=== PATIENT | male | born 1980 | race Caucasian/White ===

== ENCOUNTER 2018-05-12 12:59 | Emergency (ER) | payer OTHER ==
--- NOTE | 2018-05-12 15:11 | RADIOLOGY REPORT (SQ) ---
EXAM DESCRIPTION: RIBS LEFT W/PA CHEST COMPLETED DATE/TIME: 05/12/2018 2:59 pm REASON FOR STUDY: fall pain left ribs and clavicle COMPARISON: Chest film 11/21/2011 TECHNIQUE: Frontal view of the chest and additional views of the left ribs acquired. NUMBER OF VIEWS: PA chest, left ribs three views LIMITATIONS: None. FINDINGS: FRONTAL CXR: No pneumothorax. No pleural effusion. No atelectasis or infiltrates. Cardi ac silhouette size, marcus unremarkable. RIBS: No displaced rib fractures. No lytic or blastic bony lesions. OTHER: No other significant finding. IMPRESSION: NO PNEUMOTHORAX. NO DISPLACED RIB FRACTURES. COMMENT: SITE OF TRAUMA/COMPLAINT MARKED/STAMP COMPLETED: Yes TECHNICAL DOCUMENTATION: JOB ID: [id number] [employer]- All Rights Reserved Reading location - IP/workstation name: [email or web address]
[2018-05-12 15:24] VITALS: BP 136/89
--- NOTE | 2018-05-12 15:26 | ER Document Report ---
ED Fall - General Chief Complaint: Rib Pain Stated Complaint: FALL/RIB PAIN Time Seen by Provider: 05/12/18 14:19 Mode of Arrival: Ambulatory Information source: Patient Notes: Presents to ED for complaint of left rib pain and left neck pain after falling last night landing on a coffee table. He stated he tripped over his own feet causing the fall. He does have bruising to the left lateral and posterior ribs. He states he recently had a neuroma removed from his right foot on 05/09/2018. He is alert oriented respirations regular and unlabored speaking in full sentences with no acute distress. TRAVEL OUTSIDE OF THE [place] IN LAST 30 DAYS: No - HPI Occurred: Yesterday Where: Home, Indoors Context: Tripped Associated symptoms: None Location of injury/pain: Back, Neck Quality of pain: Achy, Sharp Severity: Severe Pain Level: 5 - Related data Allergies/Adverse Reactions: No Known Drug Allergies Allergy (Verified 05/12/18 13:01) Past Medical History - General Information source: Patient - Social History Smoking Status: Never Smoker Chew tobacco use (# tins/day): No Frequency of alcohol use: Occasional Drug Abuse: None Family History: Reviewed & Not Pertinent Patient has suicidal ideation: No Patient has homicidal ideation: No - Past Medical History Cardiac Medical History: Reports: None Pulmonary Medical History: Reports: None EENT Medical History: Reports: None Neurological Medical History: Reports: None Endocrine Medical History: Reports: None Renal/ Medical History: Reports: None Malignancy Medical History: Reports None GI Medical History: Reports: None Musculoskeletal Medical History: Reports Hx Musculoskeletal Deformity, Reports Hx Musculoskeletal Trauma Skin Medical History: Reports None Psychiatric Medical History: Reports: None Traumatic Medical History: Reports: Hx Fractures - Bilateral legs times multiple left arm multiple fingers multiple toes ankle Past Surgical History: Reports: Hx Orthopedic Surgery - R foot replacement, right rotator cuff repair - Immunizations Immunizations up to date: Yes Hx Diphtheria, Pertussis, Tetanus Vaccination: Yes Review of Systems - Review of Systems Constitutional: No symptoms reported EENT: No symptoms reported Cardiovascular: Chest pain - Left lateral rib tenderness bruising Respiratory: Hurts to breathe Gastrointestinal: No symptoms reported Genitourinary: No symptoms reported Male Genitourinary: No symptoms reported Musculoskeletal: No symptoms reported Skin: Change in color - Ecchymosis to left lateral rib area Hematologic/Lymphatic: No symptoms reported Neurological/Psychological: No symptoms reported -: Yes All other systems reviewed and negative Physical Exam - Vital signs Vitals: Temp Pulse Resp BP Pulse Ox 98.3 F 82 18 150/97 H 96 05/12/18 13:08 05/12/18 13:08 05/12/18 13:08 05/12/18 13:08 05/12/18 13:08 Interpretation: Normal - General General appearance: Appears well, Alert - HEENT Head: Normocephalic, Atraumatic Eyes: Normal Pupils: PERRL Ears: Normal External canal: Normal Tympanic membrane: Normal Sinus: Normal Nasal: Normal Mouth/Lips: Normal Mucous membranes: Normal Pharynx: Normal Neck: Normal - Respiratory Respiratory status: No respiratory distress. No: Respiratory distress Chest status: Tender, No pleuritic chest pain, Pain on movement, Pain with cough, Pain with deep breathing Breath sounds: Normal Chest palpation: Normal - Cardiovascular Rhythm: Regular Heart sounds: Normal auscultation Murmur: No - Abdominal Inspection: Normal Distension: No distension Bowel sounds: Normal Tenderness: Nontender Organomegaly: No organomegaly - Back Back: Normal, Nontender - Extremities General upper extremity: Normal inspection, Nontender, Normal color, Normal ROM, Normal temperature General lower extremity: Normal inspection, Nontender, Normal color, Normal ROM, Normal temperature, Normal weight bearing. No: Jimbo's sign - Neurological Neuro grossly intact: Yes Cognition: Normal Orientation: AAOx4 Kuldeep Coma Scale Eye Opening: Spontaneous Kuldeep Coma Scale Verbal: Oriented Kuldeep Coma Scale Motor: Obeys Commands Kuldeep Coma Scale Total: 15 Speech: Normal Motor strength normal: LUE, RUE, LLE, RLE Sensory: Normal - Psychological Associated symptoms: Normal affect, Normal mood - Skin Skin Temperature: Warm Skin Moisture: Dry Skin Color: Normal, Ecchymosis Location of irregularity: Chest - Left lateral chest Irregularity with: Tenderness Course - Re-evaluation Re-evalutation: 05/12/18 15:35 Rib x-rays and EKG discussed with patient and with Dr. Selby. Written report of x-rays were given to patient to follow-up with his primary doctor. Patient has been discharged home after he was instructed on use of incentive spirometry muscle relaxers ice packs warm packs and when to return to the emergency room. Patient is on oxycodone at home from his orthopedic surgeon who operated on his right foot 05/09/2018. He states he does not need more narcotics. Patient and verbalized understanding of instructions and agreement to follow-up with primary care and for any increase in pain and shortness of breath any difficulty breathing to call 911 and return to the ED. - Vital Signs Vital signs: Temp Pulse Resp BP Pulse Ox 98.3 F 82 18 150/97 H 96 05/12/18 13:08 05/12/18 13:08 05/12/18 13:08 05/12/18 13:08 05/12/18 13:08 - Diagnostic Test Radiology reviewed: Image reviewed, Reports reviewed Discharge - Discharge Clinical Impression: Contusion of rib on left side Qualifiers: Encounter type: initial encounter Qualified Code(s): S20.212A - Contusion of left front wall of thorax, initial encounter Fall Qualifiers: Encounter type: initial encounter Qualified Code(s): W19.XXXA - Unspecified fall, initial encounter Condition: Stable Disposition: HOME, SELF-CARE Instructions: Family Physicians / Practices Additional Instructions: Rib Contusion You have been diagnosed as having bruised ribs. It will usually take a few weeks for these injured ribs to heal. You should cough or take a deep breath at least every hour or two to prevent lung complications. You should not engage in any strenuous physical activity until released by your physician. The usual rule is "if it hurts, don't do it." Return if you develop any of the following: (1) Fever or chills. (2) Persistent cough, coughing up blood, or shortness of breath. (3) Increasing pain. (4) Weakness, lightheadedness, or fainting. MUSCLE STRAIN: You have strained a muscle -- torn the fibers within the muscle. This often occurs with strenuous exertion, or during an injury that suddenly stretches the muscle. The seriousness of a strain varies. Some strains heal within days, others cause problems for months. X-rays cannot show a muscle strain. X-rays are taken only if symptoms suggest that a fracture could be present. The usual treatment of a muscle strain is rest and ice packs. Sometimes, a sling, splint, or crutches may be necessary to rest the muscle. The muscle can be used again once pain subsides. Severe strains require a special exercise and stretching program to prevent permanent stiffness and disability. Your doctor will advise you if this will be necessary. Call the doctor immediately if pain or swelling becomes severe, or if numbness or discoloration develop. USE OF TYLENOL (ACETAMINOPHEN): Acetaminophen may be taken for pain relief or fever control. It's much safer than aspirin, offering a wider range of "safe" dosages. It is safe during . Some brand names are Tylenol, Panadol, Datril, Anacin 3, Tempra, and Liquiprin. Acetaminophen can be repeated every four hours. The following are maximum recommended dosages: WEIGHT Dose Drops Elixir Chewable(80mg) (LBS.) drprs=droppers tsp=teaspoon 6 40 mg 0.4 ml (1/2) 6-11 80 mg 0.8 ml (full) tsp 1 tab 12-16 120 mg 1 1/2 drprs 3/4 tsp 1 1/2 tabs 17-23 160 mg 2 drprs 1 tsp 2 tabs 24-30 240 mg 3 drprs 1 1/2 tsp 3 tabs 30-35 320 mg 2 tsp 4 tabs 36-41 360 mg 2 1/4 tsp 4 1/2 tabs 42-47 400 mg 2 1/2 tsp 5 tabs 48-53 480 mg 3 tsp 6 tabs 54-59 520 mg 3 1/4 tsp 6 1/2 tabs 60-64 560 mg 3 1/2 tsp 7 tabs 65-70 600 mg 3 3/4 tsp 7 1/2 tabs 71-76 640 mg 4 tsp 8 tabs 77-82 720 mg 4 1/2 tsp 9 tabs 83-88 800 mg 5 tsp 10 tabs >89 pounds or adults 650 mg to 900 mg Acetaminophen can be repeated every four hours. Maximum dose not to exceed 4000 mg a day. These maximum recommended dosages are slightly higher than the dosages written on the product container, but these dosages are very safe and below the toxic dosage for acetaminophen. ICE PACKS: Apply ice packs frequently against the painful area. Many different schedules are recommended, such as "20 minutes on, 20 minutes off" or "one hour ice, two hours rest." If you need to work, you may need to go longer between ice treatments. You should plan to have the area ice packed AT LEAST one fourth of the time. The ice should be applied over the wrap, tape, or splint, or over a layer of cloth -- not directly against the skin. Some ice bags have a built-in cloth and can be put directly on the skin. WARM PACKS: After approximately two days, apply gentle heat (such as a heating pad or hot water bottle) for about 20 to 30 minutes about every two hours -- at least four times daily. Warmth and elevation will help you make a more rapid recovery, and will ease the pain considerably. Do not use HOT heat, and never apply heat for longer than 30 minutes. The continuous heat can invisibly damage skin and muscles -- even when no burn is seen on the surface. Damaged muscles can make you MORE sore. MUSCLE RELAXERS: Muscle relaxing medications are usually prescribed for acute muscle spasm or injury to the neck and back. They are often combined with antiinflammatory pain medication for increased relief. You may stop the muscle relaxer when the pain and stiffness have improved. Start the medication again if spasms recur. Muscle relaxers may cause drowsiness, especially with the first dose. Do not operate machinery or drive while under the effects of the medication. Most muscle relaxers last up to 24 hours. Do not combine the medication with alcohol. Ibuprofen Ibuprofen is an excellent, safe drug for pain control. In addition, it has potent antiinflammatory effects which are beneficial, especially in the joe atment of injuries, arthritis, or tendonitis. It's best to take ibuprofen with food. Persons with ulcer disease or allergy to aspirin should notify their physician of this before taking ibuprofen. Take the medication exactly as prescribed. Don't take additional doses unless instructed to do so by your doctor. If you develop wheezing, shortness of breath, hives, faintness, stomach pain, vomiting, or dark black stools, return for re-evaluation at once. Please use the incentive spirometry 10 times every hour for the next 5-7 days to ensure exercise of your lungs to reduce the risk of pneumonia from your rib contusions. FOLLOW-UP CARE: If you have been referred to a physician for follow-up care, call the physicians office for an appointment as you were instructed or within the next two days. If you experience worsening or a significant change in your symptoms, notify the physician immediately or return to the Emergency Department at any time for re-evaluation. Prescriptions: Cyclobenzaprine HCl [Flexeril 10 mg Tablet] 10 mg PO TIDP PRN #15 tab PRN Reason: Forms: Elevated Blood Pressure
--- NOTE | 2018-05-12 19:20 | EKG REPORT ---
SEVERITY:- ABNORMAL ECG - SINUS RHYTHM LEFT VENTRICULAR HYPERTROPHY BORDERLINE T ABNORMALITIES, INFERIOR LEADS : Confirmed by: Vilma Hylton MD 12-May-2018 19:19:13
== END 2018-05-12 15:35 | disposition home or self-care (01) ==
LOC: ER 12:59
DX: S20.212A Contusion of left front wall of thorax, initial encounter (principal); W01.190A Fall on same level from slipping, tripping and stumbling with subsequent striking against furniture, initial encounter; Y92.008 Other place in unspecified non-institutional (private) residence as the place of occurrence of the external cause
CPT/HCPCS: 93005; 93010; 99283

== ENCOUNTER 2018-05-25 19:12 | Emergency (ER) | payer OTHER ==
[2018-05-25] MEDS ORDERED: PROMETHAZINE HCL INJ 25 MG/1 ML VIAL IM ONE (19:58)
--- NOTE | 2018-05-25 20:01 | ER Document Report ---
ED Medical Screen (RME) - General Chief Complaint: Post Surgical Pain Stated Complaint: WEAKNESS Time Seen by Provider: 05/25/18 19:54 TRAVEL OUTSIDE OF THE [place] IN LAST 30 DAYS: No - HPI Notes: 05/25/18 19:59 Patient is a 38-year-old male who presents the emergency department complaining of nausea, vomiting, subjective fever, watery diarrhea for the past 10 days. He has been unable to keep fluids in and feels weak and dehydrated. Patient had neuroma surgery to his right foot 2-1/2 weeks ago, but has not had any pain or redness at the surgical site. Patient states that he will have intermittent abdominal cramping associated, but does not currently have any pain. No surgical history to his abdomen. No other significant past medical history. He does report small amount of red blood in his stool which he has had for >1 year. Denies RESENDEZ, fever, neck pain, URI, CP, SOB, or rash. I have treated and performed a rapid initial assessment of this patient. A comprehensive ED assessment and evaluation of the patient, analysis of test results and completion of medical decision making process will be conducted by additional ED providers. PHYSICAL EXAMINATION: GENERAL: Well-appearing, well-nourished and in no acute distress. A&Ox4. Answers questions appropriately. LUNGS: Breath sounds clear to auscultation bilaterally and equal. No wheezes rales or rhonchi. HEART: Regular rate and rhythm without murmurs, rubs, gallops. ABDOMEN: Soft, nondistended abdomen. No guarding, no rebound. Normal bowel sounds present. No CVA tenderness bilaterally. Non-tender (cannot elicit thorough abd exam w/o table, however). Extremities: No cyanosis, clubbing, or edema b/l. NEUROLOGICAL: Normal speech, normal gait. PSYCH: Normal mood, normal affect. - Related Data Allergies/Adverse Reactions: acetaminophen [From Percocet] Allergy (Verified 05/25/18 19:18) oxycodone [From Percocet] Allergy (Verified 05/25/18 19:18) Past Medical History Renal/ Medical History: Denies: Hx Peritoneal Dialysis Musculoskeltal Medical History: Reports Hx Musculoskeletal Deformity, Reports Hx Musculoskeletal Trauma Traumatic Medical History: Reports: Hx Fractures - Bilateral legs times multiple left arm multiple fingers multiple toes ankle Past Surgical History: Reports: Hx Orthopedic Surgery - R foot replacement, right rotator cuff repair - Immunizations Immunizations up to date: Yes Hx Diphtheria, Pertussis, Tetanus Vaccination: Yes Physical Exam - Vital signs Vitals: Temp Pulse Resp BP Pulse Ox 98.5 F 150 H 25 H 138/97 H 98 05/25/18 19:28 05/25/18 19:28 05/25/18 19:28 05/25/18 19:28 05/25/18 19:28 Course - Vital Signs Vital signs: Temp Pulse Resp BP Pulse Ox 98.5 F 150 H 25 H 138/97 H 98 05/25/18 19:28 05/25/18 19:28 05/25/18 19:28 05/25/18 19:28 05/25/18 19:28
[2018-05-25] MEDS: NORMAL SALINE 1000 ML 1,000 ML IV PRN ×2 (20:15→21:31)
[2018-05-25 20:27] LABS: ABSOLUTE LYMPHOCYTES (AUTO) 2.9 10^3/uL (0.5-4.7); ABSOLUTE MONOCYTES (AUTO) 0.7 10^3/uL (0.1-1.4); ABSOLUTE NEUT (AUTO) 10.9 10^3/uL (1.7-8.2); BASOPHILS % (AUTO) 0.3 % (0-2); EOSINOPHILS % (AUTO) 0.1 % (0-6); HEMATOCRIT 52.2 % (37.9-51.0); HEMOGLOBIN 18.6 g/dL (13.5-17.0); LYMPHOCYTES % (AUTO) 19.8 % (13-45); MEAN CORPUSCULAR HEMOGLOBIN 30.9 pg (27.0-33.4); MEAN CORPUSCULAR HGB CONC 35.5 g/dL (32.0-36.0); MEAN CORPUSCULAR VOLUME 87 fl (80-97); MONOCYTES % (AUTO) 4.6 % (3-13); PLATELET COUNT 366 10^3/uL (150-450); RED CELL DISTRIBUTION WIDTH 12.9 % (11.5-14.0); SEGMENTED NEUTROPHILS % (AUTO) 75.2 % (42-78); TOTAL CELLS COUNTED % (AUTO) 100 %; WHITE BLOOD COUNT 14.5 10^3/uL (4.0-10.5)
[2018-05-25 20:44] LABS: ALANINE AMINOTRANSFERASE 26 U/L (21-72); ALBUMIN 4.5 g/dL (3.5-5.0); ALKALINE PHOSPHATASE 90 U/L (38-126); ANION GAP 19 (5-19); ASPARTATE AMINO TRANSFERASE 19 U/L (17-59); BILIRUBIN,DIRECT 0.3 mg/dL (0.0-0.4); BILIRUBIN,TOTAL 0.3 mg/dL (0.2-1.3); BLOOD UREA NITROGEN 14 mg/dL (7-20); CALCIUM 10.1 mg/dL (8.4-10.2); CARBON DIOXIDE 19 mmol/L (22-30); CHLORIDE 104 mmol/L (98-107); GLUCOSE 116 mg/dL (75-110); LIPASE 69.6 U/L (23-300); POTASSIUM 4.1 mmol/L (3.6-5.0); SODIUM 141.7 mmol/L (137-145); TOTAL PROTEIN 8.3 g/dL (6.3-8.2)
[2018-05-25 21:35] LABS: APPEARANCE,URINE SLIGHTLY-CLOUDY; BILIRUBIN,URINE NEGATIVE (NEGATIVE); COLOR,URINE YELLOW; GLUCOSE, URINE NEGATIVE (NEGATIVE); KETONES,URINE 80 mg/dL (NEGATIVE); LEUKOCYTE ESTERASE,URINE NEGATIVE (NEGATIVE); NITRITE,URINE NEGATIVE (NEGATIVE); PROTEIN,URINE 30 mg/dL (NEGATIVE); URINE SPECIFIC GRAVITY 1.027; UROBILINOGEN,URINE NEGATIVE mg/dL (<2.0)
[2018-05-25] MEDS ORDERED: LIDOCAINE 2% VISCOUS SOLN 20 ML UDCUP PO ONE (23:43)
[2018-05-25] MEDS ORDERED: MAG HYDROX/AL HYDROX/SIMETH SUSP 30 ML UDCUP PO ONE (23:43)
[2018-05-25] MEDS ORDERED: METOCLOPRAMIDE HCL ORAL SOLN 10 MG/10 ML UDCUP PO ONE (23:43)
[2018-05-25] MEDS ORDERED: FAMOTIDINE 20 MG TABLET PO ONE (23:43)
[2018-05-26] MEDS ORDERED: NORMAL SALINE 1000 ML 1,000 ML IV ONE ×2 (00:38→00:42)
[2018-05-26] MEDS ORDERED: HYOSCYAMINE SULFATE 0.125 MG TABLET PO ONE (00:38)
[2018-05-26] MEDS ORDERED: LORAZEPAM INJ 2 MG/1 ML VIAL IV ONE (00:38)
--- NOTE | 2018-05-26 00:44 | ER Document Report ---
ED General - General Chief Complaint: Post Surgical Pain Stated Complaint: WEAKNESS Time Seen by Provider: 05/25/18 19:54 Primary Care Provider: SCOTT MEADOWS MD [ACTIVE STAFF] - Follow up as needed Notes: Patient is a 38-year-old male without chronic medical problems who presents with 3-4 weeks of progressively worsening nausea, reflux, vomiting, abdominal cramping, flatus and frequent loose stools. States that his symptoms started approximately 1 week prior to having general anesthesia for a neuroma in his right foot. His reports that ever since he was informed that he would require general anesthesia for the neuroma removal he has "not been himself". She states that he has been having the above symptoms and that they seem to have been getting progressively worse since onset. He has been trying Zofran without any relief. Eating seems to trigger diarrhea or episodes of nausea and vomiting. He has not had weight loss but she states that he has seemed quite fatigued. relates much of his symptoms to severe anxiety and stress and the patient does not seem to disagree. He has no prior abdominal surgical history. He has never had a colonoscopy or endoscopy. Has not had a workup for this issue. TRAVEL OUTSIDE OF THE [place] IN LAST 30 DAYS: No - HPI Onset: Other - 3-4 weeks ago Onset/Duration: Gradual, Intermittent, Worse Quality of pain: Achy, Cramping Severity: Moderate Pain Level: 3 Associated symptoms: Nausea, Vomiting, Sweating Exacerbated by: Food Relieved by: Denies Similar symptoms previously: Yes Recently seen / treated by doctor: No - Related Data Allergies/Adverse Reactions: acetaminophen [From Percocet] Allergy (Verified 05/25/18 19:18) oxycodone [From Percocet] Allergy (Verified 05/25/18 19:18) Past Medical History - General Information source: Patient - Social History Smoking Status: Never Smoker Chew tobacco use (# tins/day): No Frequency of alcohol use: Occasional Drug Abuse: None Lives with: Spouse/Significant other Family History: Reviewed & Not Pertinent Patient has suicidal ideation: No Patient has homicidal ideation: No Renal/ Medical History: Denies: Hx Peritoneal Dialysis Musculoskeletal Medical History: Reports Hx Musculoskeletal Deformity, Reports Hx Musculoskeletal Trauma Traumatic Medical History: Reports: Hx Fractures - Bilateral legs times multiple left arm multiple fingers multiple toes ankle Past Surgical History: Reports: Hx Orthopedic Surgery - R foot replacement, right rotator cuff repair - Immunizations Immunizations up to date: Yes Hx Diphtheria, Pertussis, Tetanus Vaccination: Yes Review of Systems - Review of Systems Notes: Constitutional: Negative for fever. Positive for general fatigue HENT: Negative for sore throat. Eyes: Negative for visual changes. Cardiovascular: Negative for chest pain. Respiratory: Negative for shortness of breath. Gastrointestinal: Positive for abdominal cramping, nausea, vomiting, diarrhea Genitourinary: Negative for dysuria. Musculoskeletal: Negative for back pain. Skin: Negative for rash. Neurological: Negative for headaches, weakness or numbness. 10 point ROS negative except as marked above and in HPI. Physical Exam - Vital signs Vitals: Temp Pulse Resp BP Pulse Ox 98.5 F 150 H 25 H 138/97 H 98 05/25/18 19:28 05/25/18 19:28 05/25/18 19:28 05/25/18 19:28 05/25/18 19:28 Interpretation: Hypertensive, Tachycardic, Tachypneic Notes: PHYSICAL EXAMINATION: GENERAL: Appears somewhat uncomfortable, quite anxious, having difficulty sitting still in the bed HEAD: Atraumatic, normocephalic. EYES: Pupils equal round and reactive to light, extraocular movements intact, sclera anicteric, conjunctiva are normal. ENT: nares patent, oropharynx clear without exudates. Moderately dry mucous membranes. NECK: Normal range of motion, supple without lymphadenopathy LUNGS: Breath sounds clear to auscultation bilaterally and equal. No wheezes rales or rhonchi. HEART: Regular tachycardia without murmurs ABDOMEN: Soft, nontender, normoactive bowel sounds. No guarding, no rebound. No masses appreciated. EXTREMITIES: Normal range of motion, no pitting or edema. No cyanosis. NEUROLOGICAL: No focal neurological deficits. Moves all extremities spontaneously and on command. PSYCH: Fidgety, somewhat anxious SKIN: Warm, Dry, normal turgor, no rashes or lesions noted. Course - Re-evaluation Re-evalutation: 05/26/18 00:42 Patient presents with approximate 3 weeks of burping, vomiting, nausea, generalized abdominal cramping, frequent flatus, bloating and diarrhea. Symptoms worsened by eating. On exam the patient appears extremely anxious, restless in the bed cannot stop fidgeting or moving. This is not on movement secondary to pain by the patient's own report. If she denies any abdominal pain at the time of my assessment. The does report that the patient has had significant stressors in the past 1 year, had a neuroma in his right foot that has made him unable to work for the past 1 year. Approximate 1 week prior to his surgery the patient began having reflux, frequent cramping and the listed s ymptoms above. and patient agree that this appears to be strongly correlated with his stress level. Since having surgery under which he went under general anesthesia and apparently had an anxiety attack prior to this event his symptoms have been much worse. On exam the patient has no focal a bdominal tenderness no rebound or guarding in any location. There is no history or exam findings to suggest biliary pathology, appendicitis, bowel obstruction, perforation or need for medical imaging. Labs are suggestive of a prerenal azotemia consistent with patient's report of frequent nausea and vomiting and difficulty tolerating p.o. intake. I do not believe CT imaging of the abdomen pelvis or ultrasound is indicated at this time based on the benign abdominal exam. I do suspect there is a strong component of irritable bowel disease although I have strongly emphasized the patient and his that a normal colonoscopy and endoscopy are mandatory to definitively exclude inflammatory javy wel disease prior to making this diagnosis. I have emphasized the need for close outpatient follow-up, GI consultation as well as the colonoscopy and endoscopy. I have started the patient on famotidine, Carafate, Levsin and Phenergan to try to control some of his symptoms. At this time will discharge with return precautions and follow-up recommendations. Verbal discharge instructions given a the bedside and opportunity for questions given. Medication warnings reviewed. Patient is in agreement with this plan and has verbalized understanding of return precautions and the need for primary care follow-up in the next 24-72 hours. - Vital Signs Vital signs: Temp Pulse Resp BP Pulse Ox 98.9 F 102 H 16 128/76 H 100 05/26/18 02:30 05/26/18 02:30 05/26/18 02:30 05/26/18 02:30 05/26/18 02:30 - Laboratory Result Diagrams: 05/25/18 20:23 05/25/18 20:23 Laboratory results interpreted by me: 05/25/18 05/25/18 05/25/18 20:23 20:23 21:19 WBC 14.5 H RBC 6.00 H Hgb 18.6 H Hct 52.2 H Absolute Neutrophils 10.9 H Carbon Dioxide 19 L Creatinine 1.55 H Est GFR (Non-Af Amer) 51 L Glucose 116 H Total Protein 8.3 H Urine Protein 30 H Urine Ketones 80 H Discharge - Discharge Clinical Impression: Abdominal cramping, Abdominal bloating, Stress reaction Nausea and vomiting Qualifiers: Vomiting type: unspecified Vomiting Intractability: non-intractable Qualified Code(s): R11.2 - Nausea with vomiting, unspecified Condition: Good Disposition: HOME, SELF-CARE Additional Instructions: As we discussed today your symptoms are strongly suggestive of irritable bowel syndrome. However, you need a colonoscopy and endoscopy to definitively exclude any evidence of Crohn's disease or ulcerative colitis before this diagnosis can be definitively made. You are being prescribed Levsin which you can use as needed for abdominal cramping. You may use Phenergan as needed for nausea and vomiting. Please begin taking famotidine 40 mg in the morning and 40 mg at night. Take Carafate prior to meals. You need to avoid smoking, sodas, tea, coffee, alcohol, spicy foods, and acidic foods such as citrus fruits, tomato based products, berries, and most fruit juices. Stress may also be playing a significant component in your symptoms and again I would recommend that you follow-up with your primary care doctor for consideration of management options as this could also be related to worsening of your abdominal cramping, diarrhea and nausea. Return to the emergency department if you have worsening pain, persistent vomiting, fever of greater than 100.4 F, pass out, or have any other symptoms that are worrisome to you. Prescriptions: Famotidine 40 mg PO BID #60 tablet Hyoscyamine Sulfate [Levsin 0.125 Tablet] 0.125 mg PO TID PRN #30 tablet PRN Reason: Promethazine HCl [Phenergan 25 mg Tablet] 1 - 2 tab PO Q6H PRN #15 tablet PRN Reason: Sucralfate [Carafate 1 gm Tablet] 1 gm PO ACHS #120 tablet Referrals: SCOTT MEADOWS MD [ACTIVE STAFF] - Follow up as needed
[2018-05-26] MEDS ORDERED: DICYCLOMINE HCL INJ 20 MG/2 ML AMPULE IM ONE (01:50)
[2018-05-26 02:33] VITALS: BP 128/76
== END 2018-05-26 02:32 | disposition home or self-care (01) ==
LOC: ER 19:12
DX: R14.0 Abdominal distension (gaseous) (principal); R11.2 Nausea with vomiting, unspecified; F43.9 Reaction to severe stress, unspecified; G89.18 Other acute postprocedural pain; R53.1 Weakness; Z88.6 Allergy status to analgesic agent
CPT/HCPCS: 99283; 96372; 96361; 96374; 36415; 83605; 83690; 85025; 80053; 81001; J0500; J3490; J2060; J2550; J7030 ×2

== ENCOUNTER 2018-05-29 08:55 | Emergency (ER) | payer OTHER ==
[2018-05-29] MEDS ORDERED: PROMETHAZINE HCL 25 MG TABLET PO ONE (09:42)
--- NOTE | 2018-05-29 09:44 | ER Document Report ---
ED Medical Screen (RME) - General Chief Complaint: Leg Pain Stated Complaint: LEG PAIN Time Seen by Provider: 05/29/18 09:34 Mode of Arrival: Ambulatory Information source: Patient TRAVEL OUTSIDE OF THE [place] IN LAST 30 DAYS: No - HPI Patient complains to provider of: right leg pain Notes: 05/29/18 09:42 Patient is here with complaints of right leg pain. The patient had a neuroma removed from the right foot on May 09. States that yesterday he started having some pain in the bottom of his foot that has now been tracking up the back of his right leg. He now has pain in the right posterior knee. He denies any trauma or fall. 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 1 due to trauma, the other states they were unable to determine why he had developed it. He is not currently on anticoagulants. No fevers. No redness or drainage. He does complain of some nausea. Exam Well-healing incision to the right foot with some bruising identified. No redness, no drainage, not hot to the touch. Normal pulse. Normal sensation. Tenderness to palpation along the right calf and right posterior knee. No obvious swelling, redness. Compartments are soft. Plan CBC, CMP, coags, venous Doppler of the right lower extremity. Patient has been ordered a dose of Phenergan. An initial examination was made on the patient as part of the triage process, and it was determined a more comprehensive evaluation was necessary. Initial labs were ordered and patient was transferred to another provider in the ED who assumed care and finished evaluation and plan. - Related Data Allergies/Adverse Reactions: acetaminophen [From Percocet] Allergy (Verified 05/29/18 08:55) oxycodone [From Percocet] Allergy (Verified 05/29/18 08:55) Past Medical History Renal/ Medical History: Denies: Hx Peritoneal Dialysis Musculoskeltal Medical History: Reports Hx Musculoskeletal Deformity, Reports Hx Musculoskeletal Trauma Traumatic Medical History: Reports: Hx Fractures - Bilateral legs times multiple left arm multiple fingers multiple toes ankle Past Surgical History: Reports: Hx Orthopedic Surgery - R foot replacement, right rotator cuff repair - Immunizations Immunizations up to date: Yes Hx Diphtheria, Pertussis, Tetanus Vaccination: Yes Physical Exam - Vital signs Vitals: Temp Pulse Resp BP Pulse Ox 98.4 F 84 18 158/108 H 97 05/29/18 09:01 05/29/18 09:01 05/29/18 09:01 05/29/18 09:01 05/29/18 09:01 Course - Vital Signs Vital signs: Temp Pulse Resp BP Pulse Ox 98.4 F 84 18 158/108 H 97 05/29/18 09:01 05/29/18 09:01 05/29/18 09:01 05/29/18 09:01 05/29/18 09:01
[2018-05-29 10:05] LABS: ABSOLUTE EOSINOPHILS # (AUTO) 0.2 10^3/uL (0.0-0.6); ABSOLUTE LYMPHOCYTES (AUTO) 1.9 10^3/uL (0.5-4.7); ABSOLUTE MONOCYTES (AUTO) 0.4 10^3/uL (0.1-1.4); ABSOLUTE NEUT (AUTO) 5.3 10^3/uL (1.7-8.2); BASOPHILS % (AUTO) 0.3 % (0-2); EOSINOPHILS % (AUTO) 1.9 % (0-6); LYMPHOCYTES % (AUTO) 24.1 % (13-45); MEAN CORPUSCULAR HEMOGLOBIN 30.6 pg (27.0-33.4); MEAN CORPUSCULAR HGB CONC 34.8 g/dL (32.0-36.0); MEAN CORPUSCULAR VOLUME 88 fl (80-97); MONOCYTES % (AUTO) 5.5 % (3-13); PLATELET COUNT 251 10^3/uL (150-450); RED BLOOD COUNT 5.23 10^6/uL (4.35-5.55); RED CELL DISTRIBUTION WIDTH 12.6 % (11.5-14.0); SEGMENTED NEUTROPHILS % (AUTO) 68.2 % (42-78); TOTAL CELLS COUNTED % (AUTO) 100 %; WHITE BLOOD COUNT 7.8 10^3/uL (4.0-10.5)
[2018-05-29 10:12] LABS: INTERNATIONAL RATION (INR) 0.95; PROTHROMBIN TIME 13.1 SEC (11.4-15.4)
[2018-05-29 10:13] LABS: PARTIAL THROMBOPLASTIN TIME 30.8 SEC (23.5-35.8)
[2018-05-29 10:32] LABS: ALANINE AMINOTRANSFERASE 24 U/L (21-72); ALBUMIN 4.2 g/dL (3.5-5.0); ALKALINE PHOSPHATASE 46 U/L (38-126); ANION GAP 10 (5-19); ASPARTATE AMINO TRANSFERASE 16 U/L (17-59); BILIRUBIN,DIRECT 0.3 mg/dL (0.0-0.4); BILIRUBIN,TOTAL 0.7 mg/dL (0.2-1.3); BLOOD UREA NITROGEN 12 mg/dL (7-20); CALCIUM 9.6 mg/dL (8.4-10.2); CARBON DIOXIDE 29 mmol/L (22-30); CHLORIDE 102 mmol/L (98-107); GLUCOSE 101 mg/dL (75-110); POTASSIUM 3.9 mmol/L (3.6-5.0); SODIUM 141.1 mmol/L (137-145); TOTAL PROTEIN 7.1 g/dL (6.3-8.2)
[2018-05-29] MEDS ORDERED: MORPHINE SULFATE 10 MG/ML INJ IM ONE (10:35)
--- NOTE | 2018-05-29 12:10 | RADIOLOGY REPORT (SQ) ---
EXAM DESCRIPTION: VENOUS UNILATERAL LOWER COMPLETED DATE/TIME: 05/29/2018 11:46 am REASON FOR STUDY: right leg pain COMPARISON: None. TECHNIQUE: Dynamic and static springer scale and color images acquired of the right leg venous system. S elected spectral images acquired with additional compression and augmentation maneuvers. The contrala teral common femoral vein and saphenofemoral junction were also imaged. Images stored on PACS. LIMITATIONS: None. FINDINGS: COMMON FEMORAL: Normal phasicity, compression and augmentation. No visualized echogenic ma terial on springer scale. No defects on color images. FEMORAL: Normal compression and augmentation. No visualized echogenic material on springer scale. No defe cts on color images. POPLITEAL: Normal compression, augmentation. No visualized echogenic material on springer scale. No defec ts on color images. CALF VESSELS: Normal compression, augmentation. No visualized echogenic material on springer scale. No de fects on color images. GSV and SSV: Normal compression, augmentation. No visualized echogenic material on springer scale. No def ects on color images. ANY DEEP VENOUS INSUFFICIENCY: Not evaluated. ANY EVIDENCE OF POPLITEAL CYST: No. OTHER: No other significant finding. CONTRALATERAL COMMON FEMORAL VEIN AND SAPHENOFEMORAL JUNCTION: Normal phasicity, compression and augmentation. No visualized echogenic material on springer scale. No de fects on color images. IMPRESSION: NO EVIDENCE DVT OR SVT IN THE RIGHT LEG. TECHNICAL DOCUMENTATION: JOB ID: [id number] [employer]- All Rights Reserved Reading location - IP/workstation name: [email or web address]
--- NOTE | 2018-05-29 13:17 | ER Document Report ---
ED General - General Chief Complaint: Leg Pain Stated Complaint: LEG PAIN Time Seen by Provider: 05/29/18 09:34 Mode of Arrival: Ambulatory TRAVEL OUTSIDE OF THE [place] IN LAST 30 DAYS: No - HPI Notes: Patient is a 38-year-old male who presents to the emergency department for evalu ation of left lower extremity pain. He had resection of a neuroma on the bottom of his foot, performed by podiatry, on May 09. Over the last 24 hours he developed pain that goes from his foot, up the posterior aspect of his calf, and into the posterior aspect of the knee. He does have a history of DVTs. He denies any chest pain. He is sent here for further evaluation to see if he in fact has a DVT. Patient notes that he has had elevated temperatures as high as 101 over the last week. No redness. No drainage. No nausea or vomiting. - Related Data Allergies/Adverse Reactions: acetaminophen [From Percocet] Allergy (Verified 05/29/18 08:55) oxycodone [From Percocet] Allergy (Verified 05/29/18 08:55) Past Medical History - General Information source: Patient - Social History Smoking Status: Never Smoker Family History: Reviewed & Not Pertinent Patient has suicidal ideation: No Patient has homicidal ideation: No - Past Medical History Cardiac Medical History: Reports: Hx DVT Renal/ Medical History: Denies: Hx Peritoneal Dialysis Musculoskeletal Medical History: Reports Hx Musculoskeletal Deformity, Reports Hx Musculoskeletal Trauma Traumatic Medical History: Reports: Hx Fractures - Bilateral legs times multiple left arm multiple fingers multiple toes ankle Past Surgical History: Reports: Hx Orthopedic Surgery - R foot replacement, right rotator cuff repair - Immunizations Immunizations up to date: Yes Hx Diphtheria, Pertussis, Tetanus Vaccination: Yes Review of Systems - Review of Systems Constitutional: See HPI EENT: No symptoms reported Cardiovascular: No symptoms reported Respiratory: No symptoms reported Gastrointestinal: No symptoms reported Genitourinary: No symptoms reported Musculoskeletal: See HPI Skin: No symptoms reported Neurological/Psychological: No symptoms reported Physical Exam - Vital signs Vitals: Temp Pulse Resp BP Pulse Ox 98.4 F 84 18 158/108 H 97 05/29/18 09:01 05/29/18 09:01 05/29/18 09:01 05/29/18 09:01 05/29/18 09:01 - Notes Notes: Vital signs reviewed, please refer to chart. 38-year-old, appears stated age, mild to moderate distress secondary to pain. Patient is normocephalic, atraumatic. Pupils equal round, reactive to light. Neck is supple without meningismus. Heart is regular rate and rhythm. Lungs are clear to auscultation bilaterally. Abdomen is soft, nontender, normoactive bowel sounds throughout. Extremities without cyanosis, clubbing, edema. Peripheral pulses are equal. Ex amination of the left lower extremity yields a very well-healed surgical scar on the sole of the left foot, just overlying the second and third metatarsophalangeal joints. There is no significant fluctuance. He does have posterior calf tenderness on the left. Skin is warm and dry. Patient is awake, alert, neurological exam is nonfocal. Course - Re-evaluation Re-evalutation: 05/29/18 13:14 Patient presents emergency department for evaluation. He is primarily sent here to rule out DVT. Laboratory vesication's are entirely unremarkable. He is given morphine, which he states offered little in the way of relief. He is all ergic to Percocet. He is already on Neurontin. We will go ahead and try some muscle relaxers to see if this helps his pain. 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 - Vital Signs Vital signs: Temp Pulse Resp BP Pulse Ox 98.4 F 84 18 158/108 H 97 05/29/18 09:01 05/29/18 09:01 05/29/18 09:01 05/29/18 09:01 05/29/18 09:01 - Laboratory Result Diagrams: 05/29/18 09:48 05/29/18 09:48 Laboratory results interpreted by me: 05/29/18 09:48 AST 16 L Discharge - Discharge Clinical Impression: Leg pain, left Condition: Stable Disposition: HOME, SELF-CARE Additional Instructions: I do not have a clear cause for your pain in your leg increasing. Continue your home medications as prescribed. Take muscle relaxer as directed, watch for dizziness and drowsiness. Follow-up with your surgeon this week. Return to the emergency department with worsening or new concerning
[2018-05-29 13:30] VITALS: BP 145/89
== END 2018-05-29 13:30 | disposition home or self-care (01) ==
LOC: ER 08:55
DX: M79.662 Pain in left lower leg (principal); M79.672 Pain in left foot; Z98.890 Other specified postprocedural states; Z79.899 Other long term (current) drug therapy; Z86.718 Personal history of other venous thrombosis and embolism; Z88.5 Allergy status to narcotic agent
CPT/HCPCS: 99284; 96372; 36415; 85025; 85610; 85730; 80053; 93971; J2270

== ENCOUNTER 2018-06-15 11:40 | Emergency (ER) | payer OTHER ==
[2018-06-15] MEDS ORDERED: ONDANSETRON HCL INJ/PF 4 MG/2 ML SDV IV ONE (12:09)
[2018-06-15] MEDS ORDERED: NORMAL SALINE 1000 ML 1,000 ML IV ONE ×2 (12:09→14:26)
--- NOTE | 2018-06-15 12:11 | ER Document Report ---
ED Medical Screen (RME) - General Chief Complaint: Flank Pain Stated Complaint: RIGHT SIDE PAIN,WEAKNESS Time Seen by Provider: 06/15/18 12:00 Mode of Arrival: Ambulatory Information source: Patient TRAVEL OUTSIDE OF THE [place] IN LAST 30 DAYS: No - HPI Patient complains to provider of: RIGHT FLANK PAIN Notes: 06/15/18 12:10 Patient here with complaints of right flank and abdominal pain with nausea vomiting. Been going on for about a week now. Patient's been seen here multiple times in the past for vomiting and dehydration. Fall started after having a Masters's neuroma removed from the foot. No fevers. Has been feeling lightheaded. She only urinated about 6 times in the last 4 days. Exam Nontoxic, no distress. Patient does appear to be uncomfortable. Right sided abdominal tenderness on limited triage abdominal exam. Right-sided CVA tenderness to percussion. Lungs clear and equal throughout. Mild tachycardia. Plan CBC, CMP, lipase, urine, CT abdomen pelvis with IV contrast, saline lock, normal saline bolus, Zofran. An initial examination was made on the patient as part of the triage process, and it was determined a more comprehensive evaluation was necessary. Initial labs were ordered and patient was transferred to another provider in the ED who assumed care and finished evaluation and plan. - Related Data Allergies/Adverse Reactions: acetaminophen [From Percocet] Allergy (Verified 05/29/18 08:55) oxycodone [From Percocet] Allergy (Verified 05/29/18 08:55) Past Medical History - Social History Frequency of alcohol use: None Drug Abuse: None - Past Medical History Cardiac Medical History: Reports: Hx DVT, Hx Hypertension - taken off bp meds this week Renal/ Medical History: Denies: Hx Peritoneal Dialysis Musculoskeltal Medical History: Reports Hx Musculoskeletal Deformity, Reports Hx Musculoskeletal Trauma Traumatic Medical History: Reports: Hx Fractures - Bilateral legs times multiple left arm multiple fingers multiple toes ankle Past Surgical History: Reports: Hx Orthopedic Surgery - R foot, right rotator cuff repair - Immunizations Immunizations up to date: Yes Hx Diphtheria, Pertussis, Tetanus Vaccination: Yes Physical Exam - Vital signs Vitals: Temp Pulse Resp BP Pulse Ox 98.2 F 110 H 20 143/121 H 96 06/15/18 11:44 06/15/18 11:44 06/15/18 11:44 06/15/18 11:44 06/15/18 11:44 Course - Vital Signs Vital signs: Temp Pulse Resp BP Pulse Ox 98.2 F 110 H 20 143/121 H 96 06/15/18 11:44 06/15/18 11:44 06/15/18 11:44 06/15/18 11:44 06/15/18 11:44
[2018-06-15 13:04] LABS: APPEARANCE,URINE CLEAR; BILIRUBIN,URINE NEGATIVE (NEGATIVE); COLOR,URINE YELLOW; GLUCOSE, URINE NEGATIVE (NEGATIVE); KETONES,URINE NEGATIVE (NEGATIVE); LEUKOCYTE ESTERASE,URINE NEGATIVE (NEGATIVE); NITRITE,URINE NEGATIVE (NEGATIVE); PROTEIN,URINE NEGATIVE (NEGATIVE); URINE SPECIFIC GRAVITY 1.011; UROBILINOGEN,URINE NEGATIVE mg/dL (<2.0)
[2018-06-15 13:40] LABS: ABSOLUTE EOSINOPHILS # (AUTO) 0.1 10^3/uL (0.0-0.6); ABSOLUTE LYMPHOCYTES (AUTO) 2.5 10^3/uL (0.5-4.7); ABSOLUTE MONOCYTES (AUTO) 0.4 10^3/uL (0.1-1.4); BASOPHILS % (AUTO) 0.3 % (0-2); EOSINOPHILS % (AUTO) 0.9 % (0-6); HEMATOCRIT 49.4 % (37.9-51.0); LYMPHOCYTES % (AUTO) 35.6 % (13-45); MEAN CORPUSCULAR HEMOGLOBIN 30.3 pg (27.0-33.4); MEAN CORPUSCULAR HGB CONC 34.4 g/dL (32.0-36.0); MEAN CORPUSCULAR VOLUME 88 fl (80-97); MONOCYTES % (AUTO) 5.7 % (3-13); PLATELET COUNT 219 10^3/uL (150-450); RED BLOOD COUNT 5.61 10^6/uL (4.35-5.55); RED CELL DISTRIBUTION WIDTH 13.2 % (11.5-14.0); SEGMENTED NEUTROPHILS % (AUTO) 57.5 % (42-78); TOTAL CELLS COUNTED % (AUTO) 100 %
--- NOTE | 2018-06-15 13:56 | RADIOLOGY REPORT (SQ) ---
EXAM DESCRIPTION: CT ABD/PELVIS WITH IV ONLY COMPLETED DATE/TIME: 06/15/2018 1:46 pm REASON FOR STUDY: RIGHT FLANK/ABDO PAIN COMPARISON: None. TECHNIQUE: CT scan of the abdomen and pelvis performed using helical scanning technique with dynamic intravenous contrast injection. No oral contrast. Images reviewed with lung, soft tissue, and bone windows. Reconstructed coronal and sagittal MPR images reviewed. Delayed images for evaluation of the urinary system also acquired. All images stored on PACS. All CT scanners at this facility use dose modulation, iterative reconstruction, and/or weight based d osing when appropriate to reduce radiation dose to as low as reasonably achievable (ALARA). [facility]: Dose Right [facility]: CareDose [facility]: Dose Right [facility]: Teradose 4D [facility]: What They Like CONTRAST TYPE AND DOSE: contrast/concentration: Isovue 350.00 mg/ml; Total Contrast Delivered: 100.0 ml; Total Saline Delivered: 71.0 ml RENAL FUNCTION: None required. The patient is less than 50 years old. RADIATION DOSE: CT Rad equipment meets quality standard of care and radiation dose reduction techniq ues were employed. CTDIvol: NaN - NaN mGy. DLP: 0 mGy-cm.. LIMITATIONS: None. FINDINGS: LOWER CHEST: No significant findings. No nodules or infiltrates. LIVER: Normal size. No masses. No dilated ducts. SPLEEN: Normal size. No focal lesions. PANCREAS: No masses. No significant calcifications. No adjacent inflammation or peripancreatic fluid collections. Pancreatic duct not dilated. GALLBLADDER: No identified stones by CT criteria. No inflammatory changes to suggest cholecystitis. ADRENAL GLANDS: No significant masses or asymmetry. RIGHT KIDNEY AND URETER: No solid masses. No significant calcifications. No hydronephrosis or hyd roureter. LEFT KIDNEY AND URETER: No solid masses. No significant calcifications. No hydronephrosis or hydr oureter. AORTA AND VESSELS: No aneurysm. No dissection. Renal arteries, SMA, celiac without stenosis. RETROPERITONEUM: No retroperitoneal adenopathy, hemorrhage or masses. BOWEL AND PERITONEAL CAVITY: No masses or inflammatory changes. No free fluid or peritoneal masses. APPENDIX: Normal. PELVIS: No mass. No free fluid. Normal bladder. ABDOMINAL WALL: No masses. No hernias. BONES: No significant or acute findings. OTHER: No other significant finding. IMPRESSION: NO SIGNIFICANT OR ACUTE FINDING IN THE ABDOMEN OR PELVIS ON CT SCAN WITH IV CONTRAST. TECHNICAL DOCUMENTATION: JOB ID: [id number] Quality ID # [id number]: Final reports with documentation of one or more dose reduction techniques (e.g., Au tomated exposure control, adjustment of the mA and/or kV according to patient size, use of iterative reconstruction technique) 2010 [employer]- All Rights Reserved Reading location - IP/workstation name: [email or web address]
[2018-06-15 14:05] LABS: ALANINE AMINOTRANSFERASE 47 U/L (21-72); ALBUMIN 4.7 g/dL (3.5-5.0); ALKALINE PHOSPHATASE 60 U/L (38-126); ANION GAP 12 (5-19); ASPARTATE AMINO TRANSFERASE 25 U/L (17-59); BILIRUBIN,DIRECT 0.3 mg/dL (0.0-0.4); BILIRUBIN,TOTAL 0.9 mg/dL (0.2-1.3); BLOOD UREA NITROGEN 18 mg/dL (7-20); CALCIUM 10.2 mg/dL (8.4-10.2); CARBON DIOXIDE 27 mmol/L (22-30); CHLORIDE 100 mmol/L (98-107); GLUCOSE 90 mg/dL (75-110); POTASSIUM 4.8 mmol/L (3.6-5.0); SODIUM 139.2 mmol/L (137-145); TOTAL PROTEIN 8.1 g/dL (6.3-8.2)
--- NOTE | 2018-06-15 14:26 | ER Document Report ---
ED GI/ - General Chief Complaint: Flank Pain Stated Complaint: RIGHT SIDE PAIN,WEAKNESS Time Seen by Provider: 06/15/18 12:00 Primary Care Provider: ROSARIO ALTAMIRANO MD [Primary Care Provider] - 06/18/18 Mode of Arrival: Ambulatory Notes: Patient says he is having pain in his right side, down his leg. He has had vomiting as well as alternating constipation and diarrhea since about 1 AM this morning. Patient says that he has been having this problem with nausea and vomiting ever since he had surgery on his foot a month or more ago. He says the pain typically starts in the wee hours of the morning the vomiting pain go on until afternoon the day after. Patient had a very recent colonoscopy and endoscopy by Dr. Duran and was told he has diverticulosis. He is eating and drinking fluids poorly and producing less urine than normal. Also having trouble controlling his blood pressure, although none of the readings on his blood pressure extremely high. At home, patient has Phenergan, but only a small amount. He also has Pepcid, Carafate, Levsin, and Bentyl. He also takes gabapentin. He was just recently told by a PA who works that [facility] to stop taking all of these medications. Not sure what the reason or justification is for doing so. TRAVEL OUTSIDE OF THE [place] IN LAST 30 DAYS: No - HPI Patient complains to provider of: Abdominal pain - Related Data Allergies/Adverse Reactions: acetaminophen [From Percocet] Allergy (Verified 05/29/18 08:55) oxycodone [From Percocet] Allergy (Verified 05/29/18 08:55) Past Medical History - General Information source: Patient - Social History Smoking Status: Never Smoker Frequency of alcohol use: None Drug Abuse: None Family History: Reviewed & Not Pertinent Patient has suicidal ideation: No Patient has homicidal ideation: No - Past Medical History Cardiac Medical History: Reports: Hx DVT, Hx Hypertension - taken off bp meds this week GI Medical History: Reports: Hx Irritable Bowel - Has been told he has some degree of IBS. Musculoskeletal Medical History: Reports Hx Musculoskeletal Deformity, Reports Hx Musculoskeletal Trauma Traumatic Medical History: Reports: Hx Fractures - Bilateral legs times multiple left arm multiple fingers multiple toes ankle Past Surgical History: Reports: Hx Orthopedic Surgery - R foot, right rotator cuff repair - Immunizations Immunizations up to date: Yes Hx Diphtheria, Pertussis, Tetanus Vaccination: Yes Review of Systems - Review of Systems Notes: REVIEW OF SYSTEMS: CONSTITUTIONAL : Denies fever. Vital signs essentially normal with very minimal elevation of blood pressure. EENT: Denies eye, ear, nose or mouth or throat pain or other symptoms. CARDIOVASCULAR: Denies chest pain. RESPIRATORY: Denies cough, chest congestion, or shortness of breath. GASTROINTESTINAL: see HPI. GENITOURINARY: Denies difficulty or painful urinating, urinary frequency, blood in urine. MUSCULOSKELETAL: Denies back or neck pain. Denies joint pain or swelling. SKIN: Denies rash or skin lesions. NEUROLOGICAL: Denies LOC or altered mental status. Denies headache. Denies sensory loss or motor deficits. ALL OTHER SYSTEMS REVIEWED AND NEGATIVE. Physical Exam - Vital signs Vitals: Temp Pulse Resp BP Pulse Ox 98.2 F 110 H 20 143/121 H 96 06/15/18 11:44 06/15/18 11:44 06/15/18 11:44 06/15/18 11:44 06/15/18 11:44 Interpretation: Hypertensive - Not significantly elevated and to change patient's medications at this time. A lot of weight loss has an appointment to see new primary care (Ann johnson Monday. Course - Re-evaluation Re-evalutation: 06/15/18 19:25 All the patient's lab work was normal. I have suggested that he resume taking the antiemetic of choice and I have written a prescription for Phenergan and for Zofran for him. I also suggested that he start taking the Bentyl at an increased dose of 40 mg at a time 4 times a day as needed. Patient was advised to keep his appointment with his new primary care Monday to work on his treatment of his abdominal pains likely IBS. Also encouraged to follow-up with him to work on his blood pressure control. - Vital Signs Vital signs: Temp Pulse Resp BP Pulse Ox 97.9 F 83 16 121/71 97 06/15/18 15:40 06/15/18 15:40 06/15/18 15:40 06/15/18 15:40 06/15/18 15:40 - Laboratory Result Diagrams: 06/15/18 13:30 06/15/18 13:30 Laboratory results interpreted by me: 06/15/18 13:30 RBC 5.61 H - Diagnostic Test Radiology reviewed: Image reviewed, Reports reviewed Discharge - Discharge Clinical Impression: Abdominal pain, Vomiting and diarrhea, Irritable bowel syndrome (IBS) Condition: Stable Disposition: HOME, SELF-CARE Additional Instructions: ABDOMINAL PAIN: There are many causes of abdominal pain. Pain can mean a serious problem requiring surgery (such as appendicitis). It can also be an innocent problem that goes away on its own (such as a viral infection). Often, time must pass to determine the cause of pain. The physician does not feel that hospitalization is necessary, at present. Things may change within the next 24 hours. Call the doctor or come back for re- examination if any problems occur, such as: (1) Pain that becomes more severe, steady, or becomes concentrated in one specific area. Also, pain that is more severe with movement or coughing. (2) Vomiting that persists or becomes more frequent. (3) Blood in the vomitus, urine, or bowel movements. Blood in the stool may have a tarry or black appearance. (4) Shaking chills or fever greater than 100 degrees F. (5) The abdomen becomes more distended or swollen. (6) Bowel movements cease. (7) Failure to improve as expected. NORMAL EXAM AND WORKUP: At this time, your examination and workup show no significant abnormality. No significant abnormal physical findings are noted. All laboratory, EKG, and imaging (x-ray, CT scans, ultrasound) studies that were ordered show no significant abnormality. Although your examination and all studies that were ordered showed no significant abnormal finding, there are no examinations and no studies that are 100% accurate. There is always the possibility that some abnormality could exist and not be detected with physical examination or within the limits and capabilities of laboratory and other studies. You should return or follow up as you were instructed on your visit today for further evaluation if your symptoms do not resolve. ANTINAUSEA MEDICATION: You have been given a medication to suppress nausea and vomiting. This type of medication can be given as a shot, pill, or suppository. It will usually last for many hours. Pills and shots usually last six to eight hours, suppositories last about 12 hours. For the typical illness, only one or two doses of the medication may be necessary. Mild lightheadedness may occur. This type of medicine can cause drowsiness. Do not drive or operate dangerous machinery while under its influence. Do not mix with alcohol. See your doctor at once if you have muscle spasms or tightness, or uncont rollable motions (particularly of the neck, mouth, or jaw). Persistent vomiting or severe lightheadedness should also be evaluated by the physician. ANTISPASMODICS: You have been given a prescription for an antispasmodic medicine. This type of drug is used to decrease cramping and pain in the intestines. It is also used to decrease secretion of internal fluids (such as stomach acid in ulcer disease or pancreatic juice in pancreas disease). This medicine may cause drowsiness, especially with the first dose. Do not operate machinery or drive until all side effects have resolved. Do not combine with alcohol. Other common side effects include dry mouth and eyes. In older persons, antispasmodics can occasionally cause urinary retention, constipation, or trouble focusing the eyes. Glaucoma may be worsened by this medicine. Increase your dose of Bentyl to 40 mg 4 times a day as needed for cramping. Your symptoms sound like you are having irritable bowel syndrome. The cause of irritable bowel syndrome is unknown. Although often called "colitis", it is not an infection or inflammatory condition. Symptoms vary, but can include periodic abdominal cramping, migratory abdominal pains, diarrhea, or constipation. Commonly, a few days of constipation is followed by loose stools, then constipation begins again. There is no specific test for irritable bowel syndrome. The disease is diagnosed by history and exam findings, and by finding no evidence of other disease. Irritable bowel syndrome is treated by making the stool softer and bulkier. Regular meals, including plenty of soluble fiber, help. Avoid foods which provoke cramping. Stool "bulking agents," such as Metamucil, help. Expect occasional flare-ups. Call the physician if symptoms worsen, such as severe or constant abdominal pain, fever, blood in the stool, increasing constipation, or more frequent or severe diarrhea. FOLLOW-UP CARE: If you have been referred to a physician for follow-up care, call the physicians office for an appointment as you were instructed or within the next two days. If you experience worsening or a significant change in your symptoms, notify the physician immediately or return to the Emergency Department at any time for re-evaluation. Follow-up with Dr. Reyes in his office on Monday. Prescriptions: Ondansetron [Zofran Odt 4 mg Tablet] 1 - 2 tab PO Q4HP PRN #25 tab.rapdis PRN Reason: For Nausea/Vomiting Dicyclomine HCl [Bentyl 20 mg Tablet] 40 mg PO QIDP PRN #40 tablet PRN Reason: Promethazine HCl [Phenergan 25 mg Tablet] 1 - 2 tab PO Q6H PRN #25 tablet PRN Reason: Referrals: ROSARIO ALTAMIRANO MD [Primary Care Provider] - 06/18/18
[2018-06-15 15:41] VITALS: BP 121/71
== END 2018-06-15 15:43 | disposition home or self-care (01) ==
LOC: ER 11:40
DX: K58.9 Irritable bowel syndrome, unspecified (principal); R53.1 Weakness; R11.10 Vomiting, unspecified; R10.9 Unspecified abdominal pain; I10 Essential (primary) hypertension; Z88.6 Allergy status to analgesic agent; Z86.718 Personal history of other venous thrombosis and embolism
CPT/HCPCS: 99284; 96361; 96374; 36415; 83690; 85025; 80053; 81001; 74177; J2405; J7030

== ENCOUNTER 2018-06-18 09:47 | Emergency (ER) | payer OTHER ==
[2018-06-18] MEDS ORDERED: NORMAL SALINE 1000 ML 1,000 ML IV ONE ×2 (10:09→12:26)
--- NOTE | 2018-06-18 10:11 | ER Document Report ---
ED Medical Screen (RME) - General Chief Complaint: Abdominal Pain Stated Complaint: ABDOMINAL PAIN Time Seen by Provider: 06/18/18 10:07 Primary Care Provider: ROSARIO ALTAMIRANO MD [Primary Care Provider] - Follow up as needed Mode of Arrival: Wheelchair Information source: Patient Notes: 38-year-old male presented to ED for complaint of right hand arm pain abdominal pain headache and hot cold flashes. He states this all started this morning. Patient is demonstrating symptom of muscle spasms and wearing back in his chair. He does become very stiff and then tries to get out of the chair. Patient is not acting his normal self. Patient is not speaking his female air motor repairer is doing the talking. He does hit his hand and try to hit his hand on the chair a nd transfer himself out of the chair at times. Patient has elevated pulse of 139 with elevated blood pressure. I have spoken with the charge nurse and he will go straight back to her room. I have greeted and performed a rapid initial assessment of this patient. A comprehensive ED assessment and evaluation of the patient, analysis of test results and completion of medical decision making process will be conducted by an additional ED providers. TRAVEL OUTSIDE OF THE [place] IN LAST 30 DAYS: No - Related Data Allergies/Adverse Reactions: acetaminophen [From Percocet] Allergy (Verified 06/18/18 09:50) oxycodone [From Percocet] Allergy (Verified 06/18/18 09:50) Past Medical History - Past Medical History Cardiac Medical History: Reports: Hx DVT, Hx Hypertension - taken off bp meds this week Renal/ Medical History: Denies: Hx Peritoneal Dialysis GI Medical History: Reports: Hx Irritable Bowel - Has been told he has some degree of IBS. Musculoskeltal Medical History: Reports Hx Musculoskeletal Deformity, Reports Hx Musculoskeletal Trauma Traumatic Medical History: Reports: Hx Fractures - Bilateral legs times multiple left arm multiple fingers multiple toes ankle Past Surgical History: Reports: Hx Orthopedic Surgery - R foot, right rotator cuff repair - Immunizations Immunizations up to date: Yes Hx Diphtheria, Pertussis, Tetanus Vaccination: Yes Physical Exam - Vital signs Vitals: Temp Pulse Resp BP Pulse Ox 98.3 F 139 H 16 154/126 H 94 06/18/18 09:52 06/18/18 09:52 06/18/18 09:52 06/18/18 09:52 06/18/18 09:52 Course - Vital Signs Vital signs: Temp Pulse Resp BP Pulse Ox 98.3 F 139 H 16 154/126 H 94 06/18/18 09:52 06/18/18 09:52 06/18/18 09:52 06/18/18 09:52 06/18/18 09:52 Doctor's Discharge - Discharge Referrals: ROSARIO ALTAMIRANO MD [Primary Care Provider] - Follow up as needed
[2018-06-18 10:43] LABS: ABSOLUTE BASOPHILS # (AUTO) 0.1 10^3/uL (0.0-0.2); ABSOLUTE LYMPHOCYTES (AUTO) 2.1 10^3/uL (0.5-4.7); ABSOLUTE MONOCYTES (AUTO) 0.7 10^3/uL (0.1-1.4); ABSOLUTE NEUT (AUTO) 6.2 10^3/uL (1.7-8.2); BASOPHILS % (AUTO) 0.7 % (0-2); EOSINOPHILS % (AUTO) 0.4 % (0-6); HEMATOCRIT 47.5 % (37.9-51.0); HEMOGLOBIN 16.7 g/dL (13.5-17.0); MEAN CORPUSCULAR HEMOGLOBIN 31.2 pg (27.0-33.4); MEAN CORPUSCULAR HGB CONC 35.2 g/dL (32.0-36.0); MEAN CORPUSCULAR VOLUME 88 fl (80-97); MONOCYTES % (AUTO) 7.4 % (3-13); PLATELET COUNT 232 10^3/uL (150-450); RED BLOOD COUNT 5.37 10^6/uL (4.35-5.55); RED CELL DISTRIBUTION WIDTH 13.3 % (11.5-14.0); SEGMENTED NEUTROPHILS % (AUTO) 68.5 % (42-78); TOTAL CELLS COUNTED % (AUTO) 100 %
--- NOTE | 2018-06-18 10:53 | ER Document Report ---
ED General <SAJAN BENITEZ - Last Filed: 06/18/18 15:18> - General Mode of Arrival: Wheelchair TRAVEL OUTSIDE OF THE [place] IN LAST 30 DAYS: No <INDIANA STEVENS - Last Filed: 06/18/18 16:09> - General Chief Complaint: Abdominal Pain Stated Complaint: ABDOMINAL PAIN Time Seen by Provider: 06/18/18 10:07 Primary Care Provider: [facility] [Provider Group] - 06/20/18 7:30 am [facility] Crisis Team [Outside] - Follow up as needed ROSARIO ALTAMIRANO MD [Primary Care Provider] - Follow up tomorrow - [facility] Notes: Patient is a 38-year-old male with a history of recurrent abdominal pain, anxiety, diverticulosis, GERD, HTN, and DVT who presents with for altered mental status. Patient has been seen in our ED about 4 times in the past month and was also seen at another emergency department for similar symptoms a week and a half ago. states that they have also been seen by gastroenterology and had a colonoscopy as well as an EGD performed at that time. He was also seen by another family providers office throughout this time. states that he will go through episodes of weakness and complaining of pain to the right side which is where he always has the abdominal pain. states that he was very weak today and needed assistance and moving him so she called the ambulance to bring him in for evaluation. states that he is eating and drinking without difficulty. He is urinating normally and having normal bowel movements at this time. He has had unremarkable work ups each time. Last known normal is questionable as his AMS has been intermittent for the past month, but most recently normal last evening. No other recent illness. + mild RESENDEZ as well and c/o rt arm numbness from elbow-distal. Denies any fever, head injury, neck pain, changes in vision/speech/hearing, URI, sore throat, chest pain, palpitations, syncope, cough, shortness of breath, wheeze, dyspnea, nausea/vomiting/diarrhea, urinary retention, dysuria, hematuria, loss of control of bowel or bladder, tingling, saddle anesthesia, muscle paralysis/weakness, or rash. Further history after eval by Dr. Menard: pt has not taken her gabapentin since monday and when he did take it, he was feeling better. He is also on disability. (INDIANA STEVENS) - Related Data Allergies/Adverse Reactions: acetaminophen [From Percocet] Allergy (Verified 06/18/18 09:50) oxycodone [From Percocet] Allergy (Verified 06/18/18 09:50) Past Medical History - General Information source: Patient - Social History Smoking Status: Former Smoker Frequency of alcohol use: None Drug Abuse: None Family History: Reviewed & Not Pertinent Patient has suicidal ideation: No Patient has homicidal ideation: No - Past Medical History Cardiac Medical History: Reports: Hx DVT, Hx Hypertension - taken off bp meds this week Renal/ Medical History: Denies: Hx Peritoneal Dialysis GI Medical History: Reports: Hx Gastroesophageal Reflux Disease, Hx Irritable Bowel - Has been told he has some degree of IBS. Musculoskeletal Medical History: Reports Hx Musculoskeletal Deformity, Reports Hx Musculoskeletal Trauma Traumatic Medical History: Reports: Hx Fractures - Bilateral legs times multiple left arm multiple fingers multiple toes ankle Past Surgical History: Reports: Hx Orthopedic Surgery - R foot, right rotator cuff repair - Immunizations Immunizations up to date: Yes Hx Diphtheria, Pertussis, Tetanus Vaccination: Yes <INDIANA STEVENS - Last Filed: 06/18/18 16:09> Review of Systems - Review of Systems -: Yes All other systems reviewed and negative <INDIANA STEVENS - Last Filed: 06/18/18 16:09> Physical Exam <INDIANA STEVENS - Last Filed: 06/18/18 16:09> - Vital signs Vitals: Temp Pulse Resp BP Pulse Ox 98.3 F 139 H 16 154/126 H 94 06/18/18 09:52 06/18/18 09:52 06/18/18 09:52 06/18/18 09:52 06/18/18 09:52 - Notes Notes: PHYSICAL EXAMINATION: GENERAL: Well-appearing, well-nourished and in no acute distress. A&Ox4. Answers questions appropriately. He appears to be scanning the ceiling until you talk directly to him. Appears as though he does not want to focus. HEAD: Atraumatic, normocephalic. Non-tender. EYES: Pupils equal round and reactive to light, extraocular movements intact, sclera anicteric, conjunctiva are normal. No nystagmus. vis arzola intact. ENT: EAC clear b/l. TM's intact b/l without erythema, fluid, or perforation. Nares patent and without discharge. oropharynx clear without exudates. No t onsilar hypertrophy or erythema. Moist mucous membranes. No sinus tenderness. NECK: Normal range of motion, supple without lymphadenopathy. No rigidity/meningismus. No midline tenderness. LUNGS: Breath sounds clear to auscultation bilaterally and equal. No wheezes rales or rhonchi. HEART: Regular rate and rhythm without murmurs, rubs, gallops. ABDOMEN: Soft, nontender, nondistended abdomen. No guarding, no rebound. Normal bowel sounds present. No CVA tenderness bilaterally. Musculoskeletal: Ext's b/l: FROM to passive/active. Strength 5+/5. No bony tenderness of extremities. Extremities: No cyanosis, clubbing, or edema b/l. Peripheral pulses 2+. Capillary refill less than 2 seconds. NEUROLOGICAL: NIH 1 for RUE dec sensation. Can makes 'thumbs up' b/l. GCS 15. Cranial nerves grossly intact. Normal speech. Reflexes 2+ b/l. PATRIA's negative. Pronator drift negative. Heel/jaramillo, finger/nose wnl. PSYCH: flat SKIN: Warm, Dry, normal turgor, no rashes or lesions noted. (INDIANA STEVENS) Course - Laboratory Result Diagrams: 06/18/18 10:32 06/18/18 10:32 <SAJAN BENITEZ - Last Filed: 06/18/18 15:18> - Laboratory Result Diagrams: 06/18/18 10:32 06/18/18 10:32 <INDIANA STEVENS - Last Filed: 06/18/18 16:09> - Re-evaluation Re-evalutation: 06/18/18 12:28 Dr. Menard consulted who eval'd the patient and believes this to be psychosomatic and withdrawal from gabapentin playing a role. We will give more fluids and his gabapentin. We will obtain a psych consult. Work up thus far unremarkable otherwise. 06/18/18 Patient is an afebrile, well-hydrated, 38-year-old male who presents emergency department with Neurontin withdrawal and anx/dep. Vitals are acceptable without significant tachycardia, tachypnea, or hypoxia. Work-up was unremarkable today including a CT scan of the head. Patient does have an MRI pending with his family doctor otherwise. He is nontoxic-appearing and is able to tolerate p.o. without difficulty. Patient has been evaluated and cleared by our psychology team with med rec's. Low suspicion for any acute intracranial pathology, acute abdomen, sepsis, meningitis, severe dehydration, respiratory compromise, or other systemic emergent condition at this time. Patient and aware that condition can change from initial presentation and they need to monitor symptoms closely and seek medical attention with any acute changes. We will restart him on gabapentin. he will be on celexa 20mg daily and buspar 5mg twice daily per Psychology team recommendation. Recheck with your PCM in 1 to 2 days. He is scheduled on June 20. Return to the ED with any other worsening/concerning symptoms. Patient and in agreement. (INDIANA STEVENS) - Vital Signs Vital signs: Temp Pulse Resp BP Pulse Ox 98.3 F 139 H 19 134/91 H 94 06/18/18 09:52 06/18/18 09:52 06/18/18 14:33 06/18/18 14:33 06/18/18 14:33 - Laboratory Laboratory results interpreted by me: 06/18/18 06/18/18 10:32 11:03 Chloride 110 H Carbon Dioxide 19 L Creatinine 1.58 H Est GFR (Non-Af Amer) 50 L Urine Blood SMALL H Discharge <SAJAN BENITEZ - Last Filed: 06/18/18 15:18> <INDIANA STEVENS - Last Filed: 06/18/18 16:09> - Discharge Clinical Impression: Symptom of drug withdrawal, Adjustment disorder with mixed anxiety and depressed mood Condition: Stable Disposition: HOME, SELF-CARE Additional Instructions: You have been evaluated by both medical and behavioral health providers while in the emergency department. you have been cleared fro both acute medical and psychiatric services. You are dealing with a life transition as a result of fong rgery that has you on disability and worker's compensation. Adjustments like these often cause/increase/exacerbate depression and anxiety symptoms. Medications and therapy are helpful in managing these symptoms. Also medication should always be weened or jakob off. Consult your Primary Care Physician immediately regarding your Gabapentin. Maintain adequate fluid and food intake [place] diet ([employer] Bananas, rice, apples, toast, etc tylenol if needed Monitor for any worsening symptoms Make sure you are staying hydrated enough to urinate and have normal BM's Recheck with your PCM in 1-2 days Recheck with Gastroenterology for ongoing/worsening symptoms as well Return to the ED with any worsening symptoms and/or development of fever, headache, chest pain, palpitations, syncope, shortness of breath, trouble breathing, abdominal pain, n/v/d, blood in stool/urine, weakness, or other worsening symptoms that are concerning to you. Anxiety The physician feels that some of your health problems are being caused by anxiety. Anxiety affects your health in many ways. Anxiety alone can cause palpitations, sweats, chest pains, abdominal pains, shortness of breath, and headaches. It contributes to ulcer disease, high blood pressure, irritable bowel syndrome, and has been shown to cause flare-ups of many other diseases. Anxiety is not a simple disorder to treat. If the anxiety is due to recent life stresses, you may simply need time to "work through" the changes. If the anxiety is due to an underlying unhappiness with yourself or due to psychiatric disturbance, professional help will be needed. Your physician can refer you for further help if needed. Anti-anxiety medication is occasionally given if the stress is acute or if you are having trouble sleeping. Chronic or frequent use of these medications is not a good idea because the body becomes reliant on it, preventing you from dealing with life's normal stresses. Depression Your evaluation reveals that you have mental depression. While symptoms may be vague, they often include disturbance of sleep, fatigue, loss of appetite, and general loss of interest in life. While depression may be a side effect of drugs, or a reaction to a major change in your life, many cases have no known cause. If depression is acute, and related to a major loss in your life, you can expect it to clear completely with time. If you have been depressed a long time, are prone to repeated bouts of depression or low mood, or have been thinking of suicide, get help. Depression can be treated with anti-depressant medication and counselling. Long-term depression will often take a few weeks to clear, even with appropriate medication. Follow-up care is important. Contact your physician, the hospital emergency center, crisis line, or your counsellor if you are losing control or having self-destructive thoughts. Follow up Plan: You are being provided prescriptions for Celexa 20MG daily (for depression/ruminating thoughts) and Buspar 5MG twice a day (for anxiety/calming effect/depression/sleep). You should fill these prescriptions as soon as possible and begin taking them as directed. You have been scheduled with [facility] ([facility] for psychiatric medication management on 06/20/18 at 0730. At that time they will schedule you a therapy appointment or make a referral to another agency. It is recommended you take part in individual therapy to aid in your transition/adjustment due to recent surgery. If your symptoms persist or worsen contact you physician immediately, utilize mobile crisis or return to the emergency department. Prescriptions: Buspirone HCl [Buspar 5 mg Tablet] 1 tab PO BID #10 tab Citalopram Hydrobromide [Celexa] 1 tab PO DAILY #10 tablet Gabapentin [Neurontin 300 mg Capsule] 300 mg PO Q12 #20 capsule Forms: Elevated Blood Pressure Referrals: [facility] [Provider Group] - 06/20/18 7:30 am [facility] Crisis Team [Outside] - Follow up as needed ROSARIO ALTAMIRANO MD [Primary Care Provider] - Follow up as needed
[2018-06-18 10:59] LABS: INTERNATIONAL RATION (INR) 0.94; PARTIAL THROMBOPLASTIN TIME 28.9 SEC (23.5-35.8); PROTHROMBIN TIME 13.1 SEC (11.4-15.4)
[2018-06-18 11:08] LABS: PHOSPHORUS 3.1 mg/dL (2.5-4.5)
[2018-06-18 11:09] LABS: ALANINE AMINOTRANSFERASE 29 U/L (21-72); ALBUMIN 4.5 g/dL (3.5-5.0); ALKALINE PHOSPHATASE 61 U/L (38-126); ANION GAP 14 (5-19); ASPARTATE AMINO TRANSFERASE 22 U/L (17-59); BILIRUBIN,DIRECT 0.4 mg/dL (0.0-0.4); BILIRUBIN,TOTAL 0.8 mg/dL (0.2-1.3); BLOOD UREA NITROGEN 17 mg/dL (7-20); CALCIUM 10.1 mg/dL (8.4-10.2); CARBON DIOXIDE 19 mmol/L (22-30); CHLORIDE 110 mmol/L (98-107); GLUCOSE 108 mg/dL (75-110); LIPASE 64.9 U/L (23-300); POTASSIUM 4.7 mmol/L (3.6-5.0); SODIUM 143.4 mmol/L (137-145); TOTAL PROTEIN 7.7 g/dL (6.3-8.2)
[2018-06-18 11:17] LABS: VENOUS BLOOD BASE EXCESS -3.1 mmol/L; VENOUS BLOOD PCO2 35.4 mmHg (35-63); VENOUS BLOOD PH 7.39 (7.30-7.42)
--- NOTE | 2018-06-18 11:18 | RADIOLOGY REPORT (SQ) ---
EXAM DESCRIPTION: CT HEAD WITHOUT COMPLETED DATE/TIME: 06/18/2018 10:57 am REASON FOR STUDY: AMS COMPARISON: None. TECHNIQUE: Axial images acquired through the brain without intravenous contrast. Images reviewed wi th bone, brain and subdural windows. Additional sagittal and coronal reconstructions were generated. Images stored on PACS. All CT scanners at this facility use dose modulation, iterative reconstruction, and/or weight based d osing when appropriate to reduce radiation dose to as low as reasonably achievable (ALARA). [facility]: Dose Right [facility]: CareDose [facility]: Dose Right [facility]: Teradose 4D [facility]: ChartCube RADIATION DOSE: CT Rad equipment meets quality standard of care and radiation dose reduction techniq ues were employed. CTDIvol: 53.2 mGy. DLP: 991 mGy-cm. mGy. LIMITATIONS: None. FINDINGS: VENTRICLES: Normal size and contour. CEREBRUM: No masses. No hemorrhage. No midline shift. No evidence for acute infarction. Normal gra y/white matter differentiation. No areas of low density in the white matter. CEREBELLUM: No masses. No hemorrhage. No alteration of density. No evidence for acute infarction. EXTRAAXIAL SPACES: No fluid collections. No masses. ORBITS AND GLOBE: No intra- or extraconal masses. Normal contour of globe without masses. CALVARIUM: No fracture. PARANASAL SINUSES: No fluid or mucosal thickening. SOFT TISSUES: No mass or hematoma. OTHER: No other significant finding. IMPRESSION: NORMAL BRAIN CT WITHOUT CONTRAST. EVIDENCE OF ACUTE STROKE: NO. COMMENT: Quality ID # [id number]: Final reports with documentation of one or more dose reduction techniques (e.g., Automated exposure control, adjustment of the mA and/or kV according to patient size, use of iterative reconstruction technique) TECHNICAL DOCUMENTATION: JOB ID: [id number] [employer]- All Rights Reserved Reading location - IP/workstation name: [email or web address]
[2018-06-18 11:21] LABS: CREATINE KINASE MB < 0.22 ng/mL (<4.55); TROPONIN I < 0.012 ng/mL
[2018-06-18 11:27] LABS: APPEARANCE,URINE CLEAR; BILIRUBIN,URINE NEGATIVE (NEGATIVE); COLOR,URINE STRAW; GLUCOSE, URINE NEGATIVE (NEGATIVE); KETONES,URINE NEGATIVE (NEGATIVE); LEUKOCYTE ESTERASE,URINE NEGATIVE (NEGATIVE); NITRITE,URINE NEGATIVE (NEGATIVE); PROTEIN,URINE NEGATIVE (NEGATIVE); URINE SPECIFIC GRAVITY 1.006; UROBILINOGEN,URINE NEGATIVE mg/dL (<2.0)
[2018-06-18 11:45] LABS: URINE AMPHETAMINES SCREEN NEGATIVE; URINE BARBITURATES SCREEN NEGATIVE; URINE BENZODIAZEPINES SCREEN NEGATIVE; URINE COCAINE SCREEN NEGATIVE; URINE MARIJUANA (THC) SCREEN NEGATIVE; URINE METHADONE SCREEN NEGATIVE; URINE PHENCYCLIDINE SCREEN NEGATIVE
[2018-06-18] MEDS ORDERED: GABAPENTIN 300 MG CAPSULE PO ONE (12:34)
--- NOTE | 2018-06-18 14:02 | ER Document Report ---
Doctor's Note Notes: 06/18/18 14:01 Patient was seen in conjunction with the physician optometrist assistant. Please see his note to correlate with mine. In short this patient has had abdominal pain this been ongoing. He has been pursuing work-up, MRI, ordered of his abdomen as an outpatient, is pending at this time. This morning he was acting abnormally, altered mental status. He was unable to answer questions appropriately. On further questioning the patient was instructed to stop all of his medications recently. He stopped all of his abdominal medications, but also his Neurontin. My strong suspicion is that his symptoms are secondary to Neurontin withdrawal. On exam the patient is slow to answer questions but answers them appropriately. He does exhibit myoclonic jerks and appears anxious. He is instructed to restart Neurontin, follow-up closely with primary care. He may need to seek out neurology referral if his symptoms persist. 06/20/18 04:29
--- NOTE | 2018-06-18 15:14 | PSYCHOLOGICAL NOTE ---
Psych Note - Psych Note Date seen by psych provider: 06/18/18 Time seen by psych provider: 12:51 - Evaluation from [id number] with present. Psych Note: Reason for Consult: Concern for Somatization, Gabapentin withdrawal Contact Permissions: Gladys at bedside Patient is a 38 year old male who presented to the ED today via EMS after called them due to weakness, right sided abdominal pain without improvement x 1 month, has been to the [facility] ED 5 times since 05/12/18 and once in [place] for same issue. Has also seen PCM at [facility] (Dr. Christian and DENAE Babb) and manager telemarketing where he had a Colonoscopy and EGD. There was concern for Gabapentin withdrawal and psychosomatic issues. Patient stated he stopped his Gabapentin (originally prescribed by Dr. Monsalve) per [facility] doctor due to upcoming MRI and wanting to make decisions after they can see what's going on. He acknowledged he had been on it for over a year, at highest dose was 900MG total in a day and it was decreased to 300MG BID after his foot surgery by Dr. Richards 05/09/18, went off it completely/abruptly for 4 days and then started taking it again Monday when he had a follow up at [facility], and since then it sounds like he has been sporadic in taking it up through yesterday. He stated "his toes felt like they were little bit, had a burning sensation that was bad at night, he would have to stick things between his toes to try to get relief and the pain would keep him awake." He denied previous MH issues with the exception of going to [facility] in 2011 after then said he was using a bunch of drugs, got his father involved, they were and he admitted he broke things in the home (nothing of importance or expensive). He stated he was not put on any medications. He reported "I just want to feel better and get back to some normalcy." Patient was alert and oriented to self, person, place, time and situation. Mood was depressed with flat affect. He denied SI/HI, said he was not afraid of but would not want to leave his and children without him. He did not appear to be responding to internal stimuli as evidenced by fair eye contact, answering questions appropriately when addressed, carrying on dialogue conversation and being engaged in evaluation. Thought processes were linear. Conversational speech was within normal limits for rate, tone and prosody. Intellectual abilities are estimated to be average. Insight, judgment and impulse control were fair as evidenced by explaining what he is experiencing and being specific. Patient's was at bedside side. She stated "we were not completely prepared for the aftermath of this foot surgery and how it would affect him mentally." She and patient said they thought it was an in and out surgery, that would have him walking in a boot for a couple weeks, then back to normal self." She stated he has had to be out of work since the 05/09/18 surgery where a growth was removed from top of foot where lots of nerves are, they were told another growth could grow back, he has been in PT and is doing 2 days a week now, he is on worker's compensation and disability, his work has replaced him and he cannot do the things he could prior to the surgery. She stated he worries often and is depressed. Diagnosis: 309.28 (F43.23) Adjustment Disorder With Mixed Anxiety and Depressed Mood Medication recommendations made by the psychiatric medical provider, Dr. Shirin MD., includes: Add Celexa 20MG daily for depression/decrease ruminating thoughts Add Buspar 5MG twice a day for anxiety/calming effect/depression/sleep Impression/Plan: Patient is cleared from acute psychiatric services. He denied SI/HI and no observed psychosis. He had a recent foot surgery that left him disabled and on worker's compensation, is not able to do the work he did for 19 years, his job has hired someone to replace him and he stated he just wants to feel better and get back to some normalcy. Scheduled outpatient mental health [place] [facility] [place]20/[place] at 0730 for medication management and they can arrange individual therapy or link patient to another provider for it (individual therapy is recommended and this clinician encouraged it). Provided patient and the outpatient MH resource sheet which documented appointment date and time, as well as highlighted [facility] MCM for crisis/talk therapy/linkage to other services/supports. Consulted with Dr. Javier regarding the management and care of patient. ED Physician in agreement with recommendations.
--- NOTE | 2018-06-18 16:11 | EKG REPORT ---
SEVERITY:- ABNORMAL ECG - SINUS TACHYCARDIA LEFT VENTRICULAR HYPERTROPHY BORDERLINE T ABNORMALITIES, INFERIOR LEADS : Confirmed by: Vilma Hylton MD 18-Jun-2018 16:11:00
[2018-06-18 16:26] VITALS: BP 145/95
== END 2018-06-18 18:18 | disposition home or self-care (01) ==
LOC: ER 09:47
DX: F19.939 Other psychoactive substance use, unspecified with withdrawal, unspecified (principal); F43.23 Adjustment disorder with mixed anxiety and depressed mood; R10.9 Unspecified abdominal pain; R53.1 Weakness; R41.82 Altered mental status, unspecified; R51 Headache; R20.0 Anesthesia of skin; I10 Essential (primary) hypertension; Z88.6 Allergy status to analgesic agent; Z88.5 Allergy status to narcotic agent; Z87.891 Personal history of nicotine dependence; Z87.19 Personal history of other diseases of the digestive system
CPT/HCPCS: 93005; 36415; 99285; 96360; 96361; 82553; 83690; 83735; 84100; 85025; 85610; 85730; 80053; 81001; 84484; 80307; 82803; 83605; 70450; 93010; J7030

== ENCOUNTER 2018-06-20 11:54 | Inpatient (IN) | payer OTHER ==
[2018-06-20 13:11] LABS: ABSOLUTE LYMPHOCYTES (AUTO) 2.2 10^3/uL (0.5-4.7); ABSOLUTE MONOCYTES (AUTO) 0.5 10^3/uL (0.1-1.4); ABSOLUTE NEUT (AUTO) 6.8 10^3/uL (1.7-8.2); BASOPHILS % (AUTO) 0.3 % (0-2); EOSINOPHILS % (AUTO) 0.2 % (0-6); HEMATOCRIT 45.5 % (37.9-51.0); HEMOGLOBIN 15.7 g/dL (13.5-17.0); MEAN CORPUSCULAR HEMOGLOBIN 30.2 pg (27.0-33.4); MEAN CORPUSCULAR HGB CONC 34.5 g/dL (32.0-36.0); MEAN CORPUSCULAR VOLUME 88 fl (80-97); MONOCYTES % (AUTO) 5.4 % (3-13); PLATELET COUNT 245 10^3/uL (150-450); RED CELL DISTRIBUTION WIDTH 13.3 % (11.5-14.0); SEGMENTED NEUTROPHILS % (AUTO) 71.1 % (42-78); TOTAL CELLS COUNTED % (AUTO) 100 %; WHITE BLOOD COUNT 9.6 10^3/uL (4.0-10.5)
[2018-06-20 13:34] LABS: ALANINE AMINOTRANSFERASE 28 U/L (21-72); ALBUMIN 4.3 g/dL (3.5-5.0); ALKALINE PHOSPHATASE 53 U/L (38-126); ANION GAP 14 (5-19); ASPARTATE AMINO TRANSFERASE 15 U/L (17-59); BILIRUBIN,DIRECT 0.3 mg/dL (0.0-0.4); BILIRUBIN,TOTAL 0.3 mg/dL (0.2-1.3); BLOOD UREA NITROGEN 15 mg/dL (7-20); CALCIUM 10.6 mg/dL (8.4-10.2); CARBON DIOXIDE 21 mmol/L (22-30); CHLORIDE 109 mmol/L (98-107); GLUCOSE 90 mg/dL (75-110); POTASSIUM 4.5 mmol/L (3.6-5.0); SODIUM 144.3 mmol/L (137-145); TOTAL PROTEIN 7.3 g/dL (6.3-8.2)
[2018-06-20 13:35] LABS: ALCOHOL < 10 mg/dL (NONE DETECTED)
--- NOTE | 2018-06-20 15:03 | ER Document Report ---
ED General - General Chief Complaint: Probable Seizure Stated Complaint: SEIZURE Time Seen by Provider: 06/20/18 14:58 Notes: 38-year-old male with a history of recurrent abdominal pain, anxiety, diverticulosis, GERD, HTN, and DVT who presents with for altered mental status. Patient has been seen in our ED about 5 times in the past month and was also seen at another emergency department for similar symptoms a ago. states that they have also been seen by gastroenterology and had a colonoscopy as well as an EGD performed at that time. He was also seen by another family providers office throughout this time. states that he will go through episodes of weakness and complaining of pain to the right side which is where he always has the abdominal pain. He was having seizure-like activity and then started vomiting coffee-ground emesis. He is currently retching and has intractable vomiting at this time. He is tachycardic in the 140s to 150s. says that he got an outpatient MRI but has been unable to get it done due to insurance issues with Workmen[employer]. Also complaining of chest pain. Denies shortness of breath. No other recent illness. + mild RESENDEZ as well and c/o rt arm numbness from elbow-distal. Denies any fever, head injury, neck pain, changes in vision/speech/hearing, URI, sore throat, chest pain, palpitations, syncope, cough, shortness of breath, wheeze, dyspnea, nausea/vomiting/diarrhea, urinary retention, dysuria, hematuria, loss of control of bowel or bladder, tingling, saddle anesthesia, muscle paralysis/weakness, or rash. TRAVEL OUTSIDE OF THE [place] IN LAST 30 DAYS: No - Related Data Allergies/Adverse Reactions: acetaminophen [From Percocet] Allergy (Verified 06/18/18 09:50) oxycodone [From Percocet] Allergy (Verified 06/18/18 09:50) Past Medical History - Social History Smoking Status: Unknown if Ever Smoked Family History: Reviewed & Not Pertinent Patient has suicidal ideation: No Patient has homicidal ideation: No - Past Medical History Cardiac Medical History: Reports: Hx DVT, Hx Hypertension - taken off bp meds this week Renal/ Medical History: Denies: Hx Peritoneal Dialysis GI Medical History: Reports: Hx Gastroesophageal Reflux Disease, Hx Irritable Bowel - Has been told he has some degree of IBS. Musculoskeletal Medical History: Reports Hx Musculoskeletal Deformity, Reports Hx Musculoskeletal Trauma Traumatic Medical History: Reports: Hx Fractures - Bilateral legs times multiple left arm multiple fingers multiple toes ankle Past Surgical History: Reports: Hx Orthopedic Surgery - R foot, right rotator cuff repair - Immunizations Immunizations up to date: Yes Hx Diphtheria, Pertussis, Tetanus Vaccination: Yes Review of Systems - Review of Systems Constitutional: See HPI EENT: See HPI Cardiovascular: See HPI Respiratory: See HPI Gastrointestinal: See HPI Genitourinary: See HPI Male Genitourinary: No symptoms reported Musculoskeletal: See HPI Skin: See HPI Hematologic/Lymphatic: See HPI Neurological/Psychological: See HPI Physical Exam - Vital signs Vitals: Temp Resp 98.0 F 19 06/20/18 12:39 06/20/18 12:39 - Notes Notes: PHYSICAL EXAMINATION: Reviewed vital signs and charting by RN GENERAL: Alert, poor interaction secondary to acute distress. HEAD: Normocephalic, atraumatic. EYES: Pupils equal and round. Extraocular movements intact. ENT: Oral mucosa moist, tongue midline. NECK: Full range of motion. Supple. Trachea midline. LUNGS: Clear to auscultation bilaterally, no wheezes, rales, or rhonchi. No respiratory distress. HEART: Tachycardic. No murmur ABDOMEN: soft, non-tender. Non-distended. Bowel sounds present. no McBurney's point tenderness, no Atkins sign. EXTREMITIES: Moves all 4 extremities spontaneously. No edema, No cyanosis. Normal distal neurovascular exam BACK: No CVAT NEUROLOGIC: Oriented and appropriate. Normal speech. PSYCH: Normal affect, normal mood. SKIN: Warm, dry, normal turgor. No rashes or lesions noted. Course - Re-evaluation Re-evalutation: 06/20/18 15:[address] Cardozo about the patient who saw him on June 15. He knows the patient well. We will rehydrate him with IV fluids, give him Reglan, ondansetron, and Benadryl 25 mg to stop the vomiting. I will add a UDS. 06/20/18 16:57 I called his primary care Dr. Reyes to confirm the MRI that these folks are talking about. His nurse said that they did order an MRI abdomen with gadol inium and they wanted to also look at the kidneys and the adrenal glands. I added it to the work-up. Also, patient received 2 L normal saline bolused and he is still tachycardic in the mid 120s. I called the hospitalist to initiate admission. 06/20/18 17:26 Dr. Vera, hospitalist, accepted the patient for observation status 06/21/18 09:05 - Vital Signs Vital signs: Temp Pulse Resp BP Pulse Ox 98 F 100 20 131/59 H 99 06/21/18 08:27 06/21/18 08:27 06/21/18 08:27 06/21/18 08:27 06/21/18 08:27 - Laboratory Result Diagrams: 06/21/18 05:20 06/21/18 05:20 Laboratory results interpreted by me: 06/20/18 12:46 Chloride 109 H Carbon Dioxide 21 L Creatinine 1.27 H Calcium 10.6 H AST 15 L Discharge - Discharge Clinical Impression: Intractable N/V and abdominal pain, Coffee ground emesis Condition: Stable Disposition: ADMITTED OBSERVATION Admitting Provider: Joseluis (Hospitalist) Unit Admitted: Medical Floor
[2018-06-20] MEDS ORDERED: METOCLOPRAMIDE HCL INJ/PF 10 MG/2 ML SDV IV ONE ×2 (15:10→15:14)
[2018-06-20] MEDS ORDERED: ONDANSETRON HCL INJ/PF 4 MG/2 ML SDV IV ONE (15:14)
[2018-06-20] MEDS: NORMAL SALINE 1000 ML 1,000 ML IV PRN ×3 (15:30→19:44)
[2018-06-20] MEDS ORDERED: ONDANSETRON HCL INJ/PF 4 MG/2 ML SDV IV PRN (17:47)
--- NOTE | 2018-06-20 17:47 | PDOC H&P ---
History of Present Illness Admission Date/PCP: ROSARIO ALTAMIRANO MD History of Present Illness: ALYSHA BERNABE is a 38 year old male patient with no significant past medical history except for hypertension presented with chief complaint of intractable nausea and vomiting and recurrent abdominal pain. I myself witnessed the vomitus and it is coffee-ground material. Patient is under tremendous psychosocial stress. 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 Patient undergone 6 years ago surgical excision of the Masters's neuroma. The surgical wound still has not healed well. Of note patient had had upper endoscopy and colonoscopy a week ago. The upper endoscopy was positive for antral gastritis and the colonoscopy reported as plan coli and hemorrhoid. Patient also complaining of some seizure-like activity but due to the description of his I do not think it is a seizure. On examination patient looks anxious and constantly move his right foot up-and-down. On the monitor patient is found to be tachycardic. His blood work is unremarkable except for creatinine of 1.26. Past Medical History Cardiac Medical History: Reports: DVT, Hypertension - taken off bp meds this week GI Medical History: Reports: Gastroesophageal Reflux Disease Past Surgical History Past Surgical History: Reports: Orthopedic Surgery - R foot, right rotator cuff repair Social History Smoking Status: Former Smoker - Advance Directive Resuscitation Status: Full Code Family History Family History: Reviewed & Not Pertinent Parental Family History Reviewed: Yes Children Family History Reviewed: Yes Sibling(s) Family History Reviewed.: Yes Medication/Allergy Home Medications: Famotidine 40 mg PO BID #60 tablet 05/26/18 Gabapentin [Neurontin 300 mg Capsule] 300 mg PO Q12 06/20/18 Lisinopril [Prinivil 10 mg Tablet] 10 mg PO DAILY 06/20/18 Allergies/Adverse Reactions: acetaminophen [From Percocet] Allergy (Verified 06/18/18 09:50) oxycodone [From Percocet] Allergy (Verified 06/18/18 09:50) Review of Systems Constitutional: ABSENT: chills, fever(s), headache(s), weight gain, weight loss Eyes: ABSENT: visual disturbances Ears: ABSENT: hearing changes Cardiovascular: ABSENT: chest pain, dyspnea on exertion, edema, orthropnea, palpitations Respiratory: ABSENT: cough, hemoptysis Gastrointestinal: PRESENT: abdominal pain, nausea, vomiting Genitourinary: ABSENT: dysuria, hematuria Musculoskeletal: ABSENT: joint swelling Integumentary: ABSENT: rash, wounds Neurological: ABSENT: abnormal gait, abnormal speech, confusion, dizziness, focal weakness, syncope Psychiatric: ABSENT: anxiety, depression, homidical ideation, suicidal ideation Endocrine: ABSENT: cold intolerance, heat intolerance, polydipsia, polyuria Hematologic/Lymphatic: ABSENT: easy bleeding, easy bruising Physical Exam Vital Signs: Temp Pulse Resp BP Pulse Ox 98.0 F 19 111/78 96 06/20/18 12:39 06/20/18 17:01 06/20/18 17:00 06/20/18 17:01 Intake & Output 06/19/18 06/20/18 06/21/18 06:59 06:59 06:59 Weight 98.43 kg General appearance: PRESENT: no acute distress, well-developed, well-nourished Head exam: PRESENT: atraumatic, normocephalic Eye exam: PRESENT: conjunctiva pink, EOMI, PERRLA. ABSENT: scleral icterus Ear exam: PRESENT: normal external ear exam Mouth exam: PRESENT: moist, tongue midline Neck exam: ABSENT: carotid bruit, JVD, lymphadenopathy, thyromegaly Respiratory exam: PRESENT: clear to auscultation waldemar. ABSENT: rales, rhonchi, wheezes Cardiovascular exam: PRESENT: tachycardia Pulses: PRESENT: normal dorsalis pedis pul Vascular exam: PRESENT: normal capillary refill GI/Abdominal exam: PRESENT: normal bowel sounds, soft. ABSENT: distended, guarding, mass, organolmegaly, rebound, tenderness Rectal exam: PRESENT: deferred Extremities exam: PRESENT: full ROM. ABSENT: calf tenderness, clubbing, pedal edema Musculoskeletal exam: PRESENT: other - Dressed right foot. Neurological exam: PRESENT: alert, awake, oriented to person, oriented to place, oriented to time, oriented to situation, CN II-XII grossly intact. ABSENT: motor sensory deficit Psychiatric exam: PRESENT: appropriate affect, normal mood. ABSENT: homicidal ideation, suicidal ideation Skin exam: PRESENT: dry, intact, warm. ABSENT: cyanosis, rash Results Laboratory Results: 06/20/18 12:46 06/20/18 12:46 06/20/18 06/20/18 12:46 12:46 WBC 9.6 RBC 5.20 Hgb 15.7 Hct 45.5 MCV 88 MCH 30.2 MCHC 34.5 RDW 13.3 Plt Count 245 Seg Neutrophils % 71.1 Lymphocytes % 23.0 Monocytes % 5.4 Eosinophils % 0.2 Basophils % 0.3 Absolute Neutrophils 6.8 Absolute Lymphocytes 2.2 Absolute Monocytes 0.5 Absolute Eosinophils 0.0 Absolute Basophils 0.0 Sodium 144.3 Potassium 4.5 Chloride 109 H Carbon Dioxide 21 L Anion Gap 14 BUN 15 Creatinine 1.27 H Est GFR ( Amer) > 60 Est GFR (Non-Af Amer) > 60 Glucose 90 Calcium 10.6 H Magnesium 1.9 Total Bilirubin 0.3 AST 15 L ALT 28 Alkaline Phosphatase 53 Total Protein 7.3 Albumin 4.3 Assessment and Plan - Diagnosis (1) Intractable N/V and abdominal pain Is this a current diagnosis for this admission?: Yes Plan: Most probably due to peptic ulcer disease. I will start him on IV Protonix. (2) Upper GI bleeding Is this a current diagnosis for this admission?: Yes Plan: I witnessed patient has coffee-ground vomiting. Started on IV Protonix. (3) Acute kidney injury Is this a current diagnosis for this admission?: Yes Plan: Most probably due to dehydration. I will cautiously hydrate him and check his BMP in a.m. (4) Tachycardia Is this a current diagnosis for this admission?: Yes Plan: Due to dehydration compounded by anxiety. (5) Hypercalcemia Is this a current diagnosis for this admission?: Yes Plan: His calcium level is 10.6. Which will be corrected with hydration. (6) Hypertension Qualifiers: Hypertension type: essential hypertension Qualified Code(s): I10 - Essential (primary) hypertension Is this a current diagnosis for this admission?: Yes Plan: It has been on lisinopril. I will add metoprolol to him. - Inpatient Certification Medical Necessity: Need Close Monitoring Due to Risk of Patient Decompensation, Need For IV Fluids
--- NOTE | 2018-06-20 18:50 | RADIOLOGY REPORT (SQ) ---
EXAM DESCRIPTION: MRI ABDOMEN WITHOUT COMPLETED DATE/TIME: 06/20/2018 6:26 pm REASON FOR STUDY: intractable abd pain/vomiting prior CTs COMPARISON: CT abdomen pelvis 06/15/2018 TECHNIQUE: Non contrasted MRI abdomen was performed including coronal T2, axial T2 and axial T1 in a nd out of phase images. Patient was claustrophobic and would not complete contrasted abdomen study. LIMITATIONS: None. FINDINGS: GALLBLADDER: Normal. LIVER : No masses. No biliary ductal dilatation. PANCREAS: Generally homogeneous, no gross mass or significant signal alteration. No surrounding infl ammatory changes or fluid. Pancreatic duct is normal. LIVER, SPLEEN, KIDNEYS, ADRENALS: No significant abnormality. VESSELS: No evidence of aneurysm. Grossly appropriate flow voids in the major vascular structures. LUNG BASES: Grossly clear. OTHER: No other significant finding. IMPRESSION: Limited negative study TECHNICAL DOCUMENTATION: JOB ID: [id number] [employer]- All Rights Reserved Reading location - IP/workstation name: [email or web address]
[2018-06-20] MEDS ORDERED: DIAZEPAM 5 MG TABLET PO ONE (19:00)
[2018-06-20] MEDS: PANTOPRAZOLE SODIUM 40 MG VIAL IV SCH (19:42)
[2018-06-20] MEDS ORDERED: NORMAL SALINE 1000 ML 1,000 ML IV ONE (19:59)
[2018-06-20] MEDS ORDERED: HALOPERIDOL LACTATE INJ 5 MG/1 ML VIAL IV ONE (20:30)
[2018-06-20 21:35] LABS: APPEARANCE,URINE CLEAR; BILIRUBIN,URINE NEGATIVE (NEGATIVE); COLOR,URINE YELLOW; GLUCOSE, URINE NEGATIVE (NEGATIVE); KETONES,URINE 80 mg/dL (NEGATIVE); LEUKOCYTE ESTERASE,URINE NEGATIVE (NEGATIVE); NITRITE,URINE NEGATIVE (NEGATIVE); PROTEIN,URINE NEGATIVE (NEGATIVE); URINE SPECIFIC GRAVITY 1.019; UROBILINOGEN,URINE NEGATIVE mg/dL (<2.0)
[2018-06-20 21:43] LABS: URINE AMPHETAMINES SCREEN NEGATIVE; URINE BARBITURATES SCREEN NEGATIVE; URINE BENZODIAZEPINES SCREEN NEGATIVE; URINE COCAINE SCREEN NEGATIVE; URINE MARIJUANA (THC) SCREEN NEGATIVE; URINE METHADONE SCREEN NEGATIVE; URINE PHENCYCLIDINE SCREEN NEGATIVE
[2018-06-21] MEDS: DIAZEPAM 5 MG TABLET PO SCH ×4 (00:46→17:49)
[2018-06-21] MEDS: PANTOPRAZOLE SODIUM 40 MG VIAL IV SCH ×2 (05:25→17:49)
[2018-06-21] MEDS: NORMAL SALINE 1000 ML 1,000 ML IV PRN ×3 (05:26→20:09)
[2018-06-21 06:03] LABS: ABSOLUTE EOSINOPHILS # (AUTO) 0.1 10^3/uL (0.0-0.6); ABSOLUTE LYMPHOCYTES (AUTO) 2.7 10^3/uL (0.5-4.7); ABSOLUTE MONOCYTES (AUTO) 0.5 10^3/uL (0.1-1.4); ABSOLUTE NEUT (AUTO) 4.8 10^3/uL (1.7-8.2); BASOPHILS % (AUTO) 0.3 % (0-2); EOSINOPHILS % (AUTO) 0.8 % (0-6); HEMATOCRIT 40.8 % (37.9-51.0); HEMOGLOBIN 14.1 g/dL (13.5-17.0); LYMPHOCYTES % (AUTO) 33.6 % (13-45); MEAN CORPUSCULAR HEMOGLOBIN 30.3 pg (27.0-33.4); MEAN CORPUSCULAR HGB CONC 34.5 g/dL (32.0-36.0); MEAN CORPUSCULAR VOLUME 88 fl (80-97); MONOCYTES % (AUTO) 6.5 % (3-13); PLATELET COUNT 210 10^3/uL (150-450); RED BLOOD COUNT 4.64 10^6/uL (4.35-5.55); RED CELL DISTRIBUTION WIDTH 13.1 % (11.5-14.0); SEGMENTED NEUTROPHILS % (AUTO) 58.8 % (42-78); TOTAL CELLS COUNTED % (AUTO) 100 %; WHITE BLOOD COUNT 8.2 10^3/uL (4.0-10.5)
[2018-06-21 06:16] LABS: ANION GAP 13 (5-19); BLOOD UREA NITROGEN 13 mg/dL (7-20); CALCIUM 8.9 mg/dL (8.4-10.2); CARBON DIOXIDE 18 mmol/L (22-30); CHLORIDE 112 mmol/L (98-107); GLUCOSE 84 mg/dL (75-110); POTASSIUM 3.9 mmol/L (3.6-5.0); SODIUM 142.6 mmol/L (137-145)
[2018-06-21] MEDS: METOPROLOL TARTRATE 50 MG TABLET PO SCH ×2 (10:47→21:48)
[2018-06-21] MEDS ORDERED: ONDANSETRON HCL INJ/PF 4 MG/2 ML SDV ONE (12:11)
--- NOTE | 2018-06-21 13:09 | PDOC PROGRESS REPORT ---
Subjective Progress Note for:: 06/21/18 Subjective:: ALYSHA BERNABE is a 38 year old male patient with no significant past medical history except for hypertension presented with chief complaint of intractable nausea and vomiting and recurrent abdominal pain. I myself witnessed the vomitus and it is coffee-ground material. Patient is under tremendous psychosocial stress. 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 The Masters's neuroma was excised to 6 weeks ago but the wound still has not closed. This morning I seen patient resting in bed comfortably. He reports a restful night. His vomiting subsided but still has some nausea. Her blood work shows improvement in his renal function and his H&H is stable. If he remains stable patient is potential discharge for tomorrow Reason For Visit: ACUTE KIDNEY INJURY, INTRACTABLE NAUSEA, VOMITING Physical Exam Vital Signs: Temp Pulse Resp BP Pulse Ox 97.8 F 80 16 131/86 H 98 06/21/18 12:06 06/21/18 12:06 06/21/18 12:06 06/21/18 12:06 06/21/18 12:06 Intake & Output 06/20/18 06/21/18 06/22/18 06:59 06:59 06:59 Intake Total 4000 1600 Output Total 1000 500 Balance 3000 1100 Weight 101.3 kg Results Laboratory Results: 06/21/18 05:20 06/21/18 05:20 06/20/18 06/20/18 06/20/18 12:46 12:46 12:46 WBC 9.6 RBC 5.20 Hgb 15.7 Hct 45.5 MCV 88 MCH 30.2 MCHC 34.5 RDW 13.3 Plt Count 245 Seg Neutrophils % 71.1 Lymphocytes % 23.0 Monocytes % 5.4 Eosinophils % 0.2 Basophils % 0.3 Absolute Neutrophils 6.8 Absolute Lymphocytes 2.2 Absolute Monocytes 0.5 Absolute Eosinophils 0.0 Absolute Basophils 0.0 Sodium 144.3 Potassium 4.5 Chloride 109 H Carbon Dioxide 21 L Anion Gap 14 BUN 15 Creatinine 1.27 H Est GFR ( Amer) > 60 Est GFR (Non-Af Amer) > 60 Glucose 90 Calcium 10.6 H Magnesium 1.9 Total Bilirubin 0.3 AST 15 L ALT 28 Alkaline Phosphatase 53 Total Protein 7.3 Albumin 4.3 TSH 2.16 Urine Color Urine Appearance Urine pH Ur Specific [place] Urine Protein Urine Glucose (UA) Urine Ketones Urine Blood Urine Nitrite Ur Leukocyte Esterase Urine WBC (Auto) Urine RBC (Auto) 06/20/18 06/21/18 06/21/18 20:52 05:20 05:20 WBC 8.2 RBC 4.64 Hgb 14.1 Hct 40.8 MCV 88 MCH 30.3 MCHC 34.5 RDW 13.1 Plt Count 210 Seg Neutrophils % 58.8 Lymphocytes % 33.6 Monocytes % 6.5 Eosinophils % 0.8 Basophils % 0.3 Absolute Neutrophils 4.8 Absolute Lymphocytes 2.7 Absolute Monocytes 0.5 Absolute Eosinophils 0.1 Absolute Basophils 0.0 Sodium 142.6 Potassium 3.9 Chloride 112 H Carbon Dioxide 18 L Anion Gap 13 BUN 13 Creatinine 1.24 Est GFR ( Amer) > 60 Est GFR (Non-Af Amer) > 60 Glucose 84 Calcium 8.9 Magnesium Total Bilirubin AST ALT Alkaline Phosphatase Total Protein Albumin TSH Urine Color YELLOW Urine Appearance CLEAR Urine pH 5.0 Ur Specific [place] 1.019 Urine Protein NEGATIVE Urine Glucose (UA) NEGATIVE Urine Ketones 80 H Urine Blood NEGATIVE Urine Nitrite NEGATIVE Ur Leukocyte Esterase NEGATIVE Urine WBC (Auto) 2 Urine RBC (Auto) 0 06/21/18 05:20 WBC RBC Hgb Hct MCV MCH MCHC RDW Plt Count Seg Neutrophils % Lymphocytes % Monocytes % Eosinophils % Basophils % Absolute Neutrophils Absolute Lymphocytes Absolute Monocytes Absolute Eosinophils Absolute Basophils Sodium Potassium Chloride Carbon Dioxide Anion Gap BUN Creatinine Est GFR ( Amer) Est GFR (Non-Af Amer) Glucose Calcium Magnesium Total Bilirubin AST ALT Alkaline Phosphatase Total Protein Albumin TSH 1.03 Urine Color Urine Appearance Urine pH Ur Specific [place] Urine Protein Urine Glucose (UA) Urine Ketones Urine Blood Urine Nitrite Ur Leukocyte Esterase Urine WBC (Auto) Urine RBC (Auto) Impressions: Abdomen MRI 06/20/18 15:45 IMPRESSION: Limited negative study Assessment and Plan - Diagnosis (1) Intractable N/V and abdominal pain Is this a current diagnosis for this admission?: Yes Plan: Most probably due to peptic ulcer disease. I will start him on IV Protonix. (2) Upper GI bleeding Is this a current diagnosis for this admission?: Yes Plan: I witnessed patient has coffee-ground vomiting. Started on IV Protonix. (3) Acute kidney injury Is this a current diagnosis for this admission?: Yes Plan: Most probably due to dehydration. I will cautiously hydrate him and check his BMP in a.m. (4) Tachycardia Is this a current diagnosis for this admission?: Yes Plan: Due to dehydration compounded by anxiety. (5) Hypercalcemia Is this a current diagnosis for this admission?: Yes Plan: His calcium level is 10.6. Which will be corrected with hydration. Resolved (6) Hypertension Qualifiers: Hypertension type: essential hypertension Qualified Code(s): I10 - Essential (primary) hypertension Is this a current diagnosis for this admission?: Yes
[2018-06-21] MEDS: ONDANSETRON HCL INJ/PF 4 MG/2 ML SDV IV PRN (18:39)
[2018-06-21] MEDS ORDERED: CALCIUM CARBONATE 500 MG TAB.CHEW PO ONE (21:30)
[2018-06-22] MEDS: DIAZEPAM 5 MG TABLET PO SCH ×2 (00:44→05:48)
[2018-06-22] MEDS: ONDANSETRON HCL INJ/PF 4 MG/2 ML SDV IV PRN (00:44)
[2018-06-22] MEDS: NORMAL SALINE 1000 ML 1,000 ML IV PRN (04:16)
[2018-06-22] MEDS: PANTOPRAZOLE SODIUM 40 MG VIAL IV SCH (05:48)
[2018-06-22] MEDS: METOPROLOL TARTRATE 50 MG TABLET PO SCH (10:15)
--- NOTE | 2018-06-22 12:06 | PDOC DISCHARGE SUMMARY ---
General - Admit/Disc Date/PCP Admission Date/Primary Care Provider: 06/20/18 18:02 ROSARIO ALTAMIRANO MD Discharge Date: 06/22/18 - Discharge Diagnosis (1) Intractable N/V and abdominal pain Is this a current diagnosis for this admission?: Yes (2) Upper GI bleeding Is this a current diagnosis for this admission?: Yes (3) Acute kidney injury Is this a current diagnosis for this admission?: Yes (4) Tachycardia Is this a current diagnosis for this admission?: Yes (5) Hypercalcemia Is this a current diagnosis for this admission?: Yes (6) Hypertension Is this a current diagnosis for this admission?: Yes - Additional Information Resuscitation Status: Full Code Home Medications: Famotidine 40 mg PO BID #60 tablet 05/26/18 Gabapentin [Neurontin 300 mg Capsule] 300 mg PO Q12 06/20/18 Lisinopril [Prinivil 10 mg Tablet] 10 mg PO DAILY 06/20/18 History of Present Illness History of Present Illness: ALYSHA BERNABE is a 38 year old male patient with no significant past medical history except for hypertension presented with chief complaint of intractable nausea and vomiting and recurrent abdominal pain. I myself witnessed the vomitus and it is coffee-ground material. Patient is under tremendous psychosocial stress. 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 Patient undergone 6 years ago surgical excision of the Masters's neuroma. The surgical wound still has not healed well. Of note patient had had upper endoscopy and colonoscopy a week ago. The upper endoscopy was positive for antral gastritis and the colonoscopy reported as plan coli and hemorrhoid. Patient also complaining of some seizure-like activity but due to the description of his I do not think it is a seizure. On examination patient looks anxious and constantly move his right foot up-and-down. On the monitor patient is found to be tachycardic. His blood work is unremarkable except for creatinine of 1.26. Hospital Course Hospital Course: ALYSHA BERNABE is a 38 year old male patient with no significant past medical history except for hypertension presented with chief complaint of intractable nausea and vomiting and recurrent abdominal pain. I myself witnessed the vomitus and it is coffee-ground material. Patient is under tremendous psychosocial stress. 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 The Masters's neuroma was excised to 6 weeks ago but the wound still has not closed. He needs follow-up with his orthopedic surgeon. This morning I seen patient sitting up on recliner and enjoying his lunch. He stated he had a restful night. His nausea and vomiting has subsided. He eats well and tolerates well. I will send him home with Protonix 40 mg p.o. daily, diazepam 5 mg p.o. every 8 hours as needed and Lopressor 50 mg twice daily. Patient advised to follow-up with his primary care physician and his primary arborer. Physical Exam Vital Signs: Temp Pulse Resp BP Pulse Ox 97.7 F 81 16 138/83 H 97 06/22/18 07:23 06/22/18 07:23 06/22/18 07:23 06/22/18 07:23 06/22/18 07:23 Intake & Output 06/21/18 06/22/18 06/23/18 06:59 06:59 06:59 Intake Total 4000 3960 Output Total 1000 1650 Balance 3000 2310 Weight 101.3 kg 101.2 kg General appearance: PRESENT: no acute distress, well-developed, well-nourished Head exam: PRESENT: atraumatic, normocephalic Eye exam: PRESENT: conjunctiva pink, EOMI, PERRLA. ABSENT: scleral icterus Ear exam: PRESENT: normal external ear exam Mouth exam: PRESENT: moist, tongue midline Neck exam: ABSENT: carotid bruit, JVD, lymphadenopathy, thyromegaly Respiratory exam: PRESENT: clear to auscultation waldemar. ABSENT: rales, rhonchi, wheezes Cardiovascular exam: PRESENT: RRR. ABSENT: diastolic murmur, rubs, systolic murmur Pulses: PRESENT: normal dorsalis pedis pul Vascular exam: PRESENT: normal capillary refill GI/Abdominal exam: PRESENT: normal bowel sounds, soft. ABSENT: distended, guarding, mass, organolmegaly, rebound, tenderness Rectal exam: PRESENT: deferred Extremities exam: PRESENT: full ROM. ABSENT: calf tenderness, clubbing, pedal edema Neurological exam: PRESENT: alert, awake, oriented to person, oriented to place, oriented to time, oriented to situation, CN II-XII grossly intact. ABSENT: motor sensory deficit Psychiatric exam: PRESENT: appropriate affect, normal mood. ABSENT: homicidal ideation, suicidal ideation Skin exam: PRESENT: dry, intact, warm. ABSENT: cyanosis, rash Results Laboratory Results: 06/21/18 05:20 06/21/18 05:20 Impressions: Abdomen MRI 06/20/18 15:45 IMPRESSION: Limited negative study Qualifiers - * PATIENT BEING DISCHARGED WITH ANY OF THE FOLLOWING DIAGNOSIS: No Acute Heart Failure Is this a Heart Failure Patient?: No
[2018-06-22] MEDS ORDERED: POLYETHYLENE GLYCOL 3350 POWDER 17 GM/1 PACKET PO SCH (13:00)
[2018-06-22 14:48] VITALS: BP 136/94
[2018-06-22] MEDS ORDERED: DOCUSATE SODIUM 100 MG CAPSULE PO SCH (18:00)
== END 2018-06-22 15:45 | disposition home or self-care (01) | DRG 683 ==
LOC: ER 11:54 → EH 18:02 → 4S 21:02
PROVIDERS: ADMIT Internal Medicine; ATTEND Internal Medicine
DX: N17.9 Acute kidney failure, unspecified (principal); K92.2 Gastrointestinal hemorrhage, unspecified; E86.0 Dehydration; E83.52 Hypercalcemia; F41.9 Anxiety disorder, unspecified; I10 Essential (primary) hypertension; G57.60 Lesion of plantar nerve, unspecified lower limb; R00.0 Tachycardia, unspecified; Z86.718 Personal history of other venous thrombosis and embolism; K21.9 Gastro-esophageal reflux disease without esophagitis; Z56.6 Other physical and mental strain related to work
CPT/HCPCS: 36415; 74181; 80048; 80053; 80307; 81001; 82962; 83735; 84443; 85025; 96361; 96374; 96375; 99285; J1630; J2405; J2765; J7030; S0164

== ENCOUNTER 2018-07-03 16:09 | Emergency (ER) | payer OTHER ==
--- NOTE | 2018-07-03 16:47 | ER Document Report ---
ED Medical Screen (RME) - General Chief Complaint: High Blood Pressure Stated Complaint: DIFFICULTY URINATING, SIDE PAIN Time Seen by Provider: 07/03/18 16:36 Primary Care Provider: ROSARIO ALTAMIRANO MD [Primary Care Provider] - Follow up as needed Mode of Arrival: Ambulatory Information source: Patient TRAVEL OUTSIDE OF THE [place] IN LAST 30 DAYS: No - HPI Patient complains to provider of: URINARY RETENTION Notes: 07/03/18 16:45 Patient here with complaints of unable to urinate for the last 2 days. He states he feels like he needs to go, but when he strains only a small amount comes out. He was recently admitted to the hospital for acute kidney failure. He states that he was better when he went home. He also complains of some constipation. He denies being on pain medication to me. He complains of some abdominal pain and right flank pain. No fever. Exam Nontoxic, no distress. Lungs clear and equal throughout. Heart sounds normal. Right-sided CVA tenderness to percussion. Lower mid abdominal tenderness on exam on limited triage exam. Plan CBC, CMP, urinalysis if were able to obtain urine. Bladder scan to determine if Sims catheter is needed. CT the abdomen pelvis to evaluate the right flank pain. An initial examination was made on the patient as part of the triage process, and it was determined a more comprehensive evaluation was necessary. Initial labs were ordered and patient was transferred to another provider in the ED who assumed care and finished evaluation and plan. - Related Data Allergies/Adverse Reactions: acetaminophen [From Percocet] Allergy (Verified 07/03/18 16:09) oxycodone [From Percocet] Allergy (Verified 07/03/18 16:09) Past Medical History - Social History Frequency of alcohol use: Occasional - Past Medical History Cardiac Medical History: Reports: Hx DVT, Hx Hypertension - taken off bp meds this week Renal/ Medical History: Denies: Hx Peritoneal Dialysis GI Medical History: Reports: Hx Gastroesophageal Reflux Disease, Hx Irritable Bowel - Has been told he has some degree of IBS. Musculoskeltal Medical History: Reports Hx Musculoskeletal Deformity, Reports Hx Musculoskeletal Trauma Traumatic Medical History: Reports: Hx Fractures - Bilateral legs times multiple left arm multiple fingers multiple toes ankle Past Surgical History: Reports: Hx Orthopedic Surgery - R foot, right rotator cuff repair - Immunizations Immunizations up to date: Yes Hx Diphtheria, Pertussis, Tetanus Vaccination: Yes Physical Exam - Vital signs Vitals: Temp Pulse Resp BP Pulse Ox 97.5 F 79 18 153/105 H 97 07/03/18 16:10 07/03/18 16:10 07/03/18 16:10 07/03/18 16:10 07/03/18 16:10 Course - Vital Signs Vital signs: Temp Pulse Resp BP Pulse Ox 97.5 F 79 18 127/75 H 97 07/03/18 16:10 07/03/18 16:10 07/03/18 16:10 07/03/18 16:36 07/03/18 16:10 Doctor's Discharge - Discharge Referrals: ROSARIO ALTAMIRANO MD [Primary Care Provider] - Follow up as needed
[2018-07-03 17:23] LABS: ABSOLUTE EOSINOPHILS # (AUTO) 0.1 10^3/uL (0.0-0.6); ABSOLUTE MONOCYTES (AUTO) 0.5 10^3/uL (0.1-1.4); ABSOLUTE NEUT (AUTO) 4.3 10^3/uL (1.7-8.2); BASOPHILS % (AUTO) 0.4 % (0-2); HEMATOCRIT 44.3 % (37.9-51.0); LYMPHOCYTES % (AUTO) 37.9 % (13-45); MEAN CORPUSCULAR HGB CONC 33.9 g/dL (32.0-36.0); MEAN CORPUSCULAR VOLUME 89 fl (80-97); MONOCYTES % (AUTO) 6.5 % (3-13); PLATELET COUNT 249 10^3/uL (150-450); RED CELL DISTRIBUTION WIDTH 13.5 % (11.5-14.0); SEGMENTED NEUTROPHILS % (AUTO) 54.2 % (42-78); TOTAL CELLS COUNTED % (AUTO) 100 %
--- NOTE | 2018-07-03 17:29 | RADIOLOGY REPORT (SQ) ---
EXAM DESCRIPTION: CT ABD/PELVIS NO ORAL OR IV COMPLETED DATE/TIME: 07/03/2018 5:16 pm REASON FOR STUDY: RIGHT FLANK PAIN, URINARY RETENTION COMPARISON: None. TECHNIQUE: CT scan of the abdomen and pelvis performed without intravenous or oral contrast. Images reviewed with lung, soft tissue, and bone windows. Reconstructed coronal and sagittal MPR images revi ewed. All images stored on PACS. All CT scanners at this facility use dose modulation, iterative reconstruction, and/or weight based d osing when appropriate to reduce radiation dose to as low as reasonably achievable (ALARA). [facility]: Dose Right [facility]: CareDose [facility]: Dose Right [facility]: Teradose 4D [facility]: Smart Idhasoft RADIATION DOSE: CT Rad equipment meets quality standard of care and radiation dose reduction techniq ues were employed. CTDIvol: 14.5 mGy. DLP: 858 mGy-cm.mGy. LIMITATIONS: None. FINDINGS: LOWER CHEST: No significant findings. No nodules or infiltrates. NON-CONTRASTED LIVER, SPLEEN, ADRENALS: Evaluation limited by lack of IV contrast. No identified sign ificant masses. PANCREAS: No masses. No peripancreatic inflammatory changes. GALLBLADDER: No calcified stones. No inflammatory changes to suggest cholecystitis. RIGHT KIDNEY AND URETER: No cysts identified. No solid masses. No calcified stones. No hydronephrosis or hydroureter. LEFT KIDNEY AND URETER: No cysts identified. No solid masses. No calcified stones. No hydronephrosis or hydroureter. AORTA AND RETROPERITONEUM: No aneurysm. No retroperitoneal masses or adenopathy. BOWEL AND PERITONEAL CAVITY: No obvious masses or inflammatory changes. No free fluid. APPENDIX: Normal. PELVIS, BLADDER, AND ABDOMINAL WALL:No abnormal masses. No free fluid. Unremarkable bladder. BONES: No acute findings. OTHER: No other significant finding. IMPRESSION: NO ACUTE FINDINGS. TECHNICAL DOCUMENTATION: JOB ID: [id number] Quality ID # [id number]: Final reports with documentation of one or more dose reduction techniques (e.g., Au tomated exposure control, adjustment of the mA and/or kV according to patient size, use of iterative reconstruction technique) 2010 [employer]- All Rights Reserved Reading location - IP/workstation name: [email or web address]
[2018-07-03 17:38] LABS: ALANINE AMINOTRANSFERASE 32 U/L (21-72); ALBUMIN 4.5 g/dL (3.5-5.0); ALKALINE PHOSPHATASE 53 U/L (38-126); ANION GAP 11 (5-19); ASPARTATE AMINO TRANSFERASE 19 U/L (17-59); BILIRUBIN,DIRECT 0.3 mg/dL (0.0-0.4); BILIRUBIN,TOTAL 0.6 mg/dL (0.2-1.3); BLOOD UREA NITROGEN 12 mg/dL (7-20); CALCIUM 9.7 mg/dL (8.4-10.2); CARBON DIOXIDE 33 mmol/L (22-30); CHLORIDE 96 mmol/L (98-107); GLUCOSE 94 mg/dL (75-110); LIPASE 43.8 U/L (23-300); POTASSIUM 3.9 mmol/L (3.6-5.0); SODIUM 139.5 mmol/L (137-145); TOTAL PROTEIN 7.4 g/dL (6.3-8.2)
[2018-07-03] MEDS ORDERED: LIDOCAINE 2% URO-JET 5 ML KIT MM ONE (18:17)
--- NOTE | 2018-07-03 18:23 | ER Document Report ---
ED General - General Chief Complaint: High Blood Pressure Stated Complaint: DIFFICULTY URINATING, SIDE PAIN Time Seen by Provider: 07/03/18 16:36 Primary Care Provider: ROSARIO ALTAMIRANO MD [Primary Care Provider] - Follow up as needed Mode of Arrival: Ambulatory TRAVEL OUTSIDE OF THE [place] IN LAST 30 DAYS: No - HPI Notes: Patient is a 38-year-old male that presents to the emergency department for chief complaint of urine retention. Patient states he has had about 4 ounces of urine output in the last 2 days. He states he has a lot of lower abdominal pressure and fullness. He states he feels like he needs to urinate but cannot. His last bowel movement was 2 days ago. He states he has been going 1 to 2 days between bowel movements and they are more firm. He does have a history of constipation. He denies history of urine retention or prostate issues in the past. Patient was recently admitted to the hospital with renal insufficiency. He states he has been staying well- hydrated and has had 64 ounces of fluids between yesterday and today. Patient also states he had a pain in his right lower back for the last few weeks which has been constant and is currently unchanged. Patient is currently on Keflex to prophylax infection after a surgery on his right foot for chronic wound. Past Medical History: Reviewed in chart Past Surgical History: Right foot surgery Social History: Denies drugs alcohol and tobacco Family History: Reviewed and noncontributory for presenting illness Allergies: Reviewed, see documented allergy list. REVIEW OF SYSTEMS: CONSTITUTIONAL : No fever No chills No diaphoresis No recent illness EENT: No vision changes No congestion No sore throat CARDIOVASCULAR: No chest pain No palpitations RESPIRATORY: No shortness of breath No cough No difficulty breathing GASTROINTESTINAL: abdominal pain No nausea No vomiting No diarrhea GENITOURINARY: No dysuria No hematuria difficulty urinating MUSCULOSKELETAL: No back pain No leg pain No arm pain SKIN: No rashes No lesions LYMPHATIC: No swollen, enlarged glands. NEUROLOGICAL: No lightheadedness No headache No weakness No paresthesias PSYCHIATRIC: No anxiety No depression PHYSICAL EXAMINATION: Vital signs reviewed, nursing noted reviewed. GENERAL: Well-appearing, well-nourished and in no acute distress. HEAD: Atraumatic, normocephalic. EYES: Eyes appear normal, extraocular movements intact, sclera anicteric, conjunctiva are normal. ENT: nares patent, oropharynx clear without exudates. Moist mucous membranes. NECK: Normal range of motion, supple without lymphadenopathy LUNGS: Breath sounds clear to auscultation bilaterally and equal. No wheezes rales or rhonchi. HEART: Regular rate and rhythm without murmurs ABDOMEN: No CVA tenderness bilaterally, mildly distended, soft, suprapubic tenderness and fullness, normoactive bowel sounds. No rebound, guarding, or rigidity. No masses appreciated. EXTREMITIES: Nontender, good range of motion, no pitting or edema. NEUROLOGICAL: No focal neurological deficits. Moves all extremities spontaneously Motor and sensory grossly intact on exam. PSYCH: Normal mood, normal affect. SKIN: Warm, Dry, normal turgor, no rashes or lesions noted on exposed skin - Related Data Allergies/Adverse Reactions: acetaminophen [From Percocet] Allergy (Verified 07/03/18 16:09) oxycodone [From Percocet] Allergy (Verified 07/03/18 16:09) Past Medical History - General Information source: Patient - Social History Smoking Status: Never Smoker Frequency of alcohol use: Occasional Family History: Reviewed & Not Pertinent Patient has suicidal ideation: No Patient has homicidal ideation: No - Past Medical History Cardiac Medical History: Reports: Hx DVT, Hx Hypertension - taken off bp meds this week Renal/ Medical History: Denies: Hx Peritoneal Dialysis GI Medical History: Reports: Hx Gastroesophageal Reflux Disease, Hx Irritable Bowel - Has been told he has some degree of IBS. Musculoskeletal Medical History: Reports Hx Musculoskeletal Deformity, Reports Hx Musculoskeletal Trauma Traumatic Medical History: Reports: Hx Fractures - Bilateral legs times multiple left arm multiple fingers multiple toes ankle Past Surgical History: Reports: Hx Orthopedic Surgery - R foot, right rotator cuff repair - Immunizations Immunizations up to date: Yes Hx Diphtheria, Pertussis, Tetanus Vaccination: Yes Physical Exam - Vital signs Vitals: Temp Pulse Resp BP Pulse Ox 97.5 F 79 18 153/105 H 97 07/03/18 16:10 07/03/18 16:10 07/03/18 16:10 07/03/18 16:10 07/03/18 16:10 Course - Re-evaluation Re-evalutation: 07/03/18 18:23 Vitals reviewed. Nursing notes reviewed. Patient has normal renal function and electrolytes today. His CBC is unremarkable. CT scan shows no acute intra- abdominal process however he does have distention of his bladder and is currently not able to void. Sims catheter will be placed for his acute urine retention. 07/03/18 21:05 After Sims catheter was placed patient had greater than 700 mL of urine out. Sims catheter will be left in place for his acute urinary retention. He has no acute urinary tract infection. Patient was advised to start taking MiraLAX for his constipation which is likely partially causing his urine obstruction. Patient will be referred to urology for outpatient follow-up. He has otherwise remained hemodynamically stable and abdominal symptoms improved after Sims catheter was placed. Laboratory 07/03/18 07/03/18 07/03/18 16:55 16:55 18:50 WBC 8.0 RBC 5.00 Hgb 15.0 Hct 44.3 MCV 89 MCH 30.0 MCHC 33.9 RDW 13.5 Plt Count 249 Seg Neutrophils % 54.2 Lymphocytes % 37.9 Monocytes % 6.5 Eosinophils % 1.0 Basophils % 0.4 Absolute Neutrophils 4.3 Absolute Lymphocytes 3.0 Absolute Monocytes 0.5 Absolute Eosinophils 0.1 Absolute Basophils 0.0 Sodium 139.5 Potassium 3.9 Chloride 96 L Carbon Dioxide 33 H Anion Gap 11 BUN 12 Creatinine 1.25 Est GFR ( Amer) > 60 Est GFR (Non-Af Amer) > 60 Glucose 94 Calcium 9.7 Total Bilirubin 0.6 Direct Bilirubin 0.3 Neonat Total Bilirubin Not Reportable Neonat Direct Bilirubin Not Reportable Neonat Indirect Bili Not Reportable AST 19 ALT 32 Alkaline Phosphatase 53 Total Protein 7.4 Albumin 4.5 Lipase 43.8 Urine Color YELLOW Urine Appearance CLEAR Urine pH 8.0 Ur Specific [place] 1.011 Urine Protein NEGATIVE Urine Glucose (UA) NEGATIVE Urine Ketones NEGATIVE Urine Blood NEGATIVE Urine Nitrite NEGATIVE Urine Bilirubin NEGATIVE Urine Urobilinogen NEGATIVE Ur Leukocyte Esterase NEGATIVE Urine WBC (Auto) 0 Urine RBC (Auto) 0 Urine Mucus (Auto) RARE Urine Ascorbic Acid NEGATIVE Abdomen/Pelvis CT 07/03/18 16:44 IMPRESSION: NO ACUTE FINDINGS. - Vital Signs Vital signs: Temp Pulse Resp BP Pulse Ox 97.5 F 79 12 145/111 H 90 L 07/03/18 16:10 07/03/18 16:10 07/03/18 18:01 07/03/18 18:01 07/03/18 18:01 - Laboratory Result Diagrams: 07/03/18 16:55 07/03/18 16:55 Laboratory results interpreted by me: 07/03/18 16:55 Chloride 96 L Carbon Dioxide 33 H Discharge - Discharge Clinical Impression: Acute retention of urine Condition: Stable Disposition: HOME, SELF-CARE Instructions: High Blood Pressure ([facility]), Sims Catheter Care ([facility]), Urinary Retention ([facility]) Additional Instructions: Please return to the emergency department if you have any worsening, or concern of your symptoms. Please return to the emergency department if you develop chest pain, difficulty breathing, severe abdominal pain, or ongoing vomiting. Please follow-up with your primary care physician in 2-3 days and any other recommended physicians. If prescribed, take all medications as directed. If you have any questions or concerns do not hesitate to return the emergency department for evaluation. Begin taking MiraLAX at home 2-3 times daily to achieve soft bowel movement daily. If you begin to have frequent loose stools decrease the amount of MiraLAX you take to once a day or once every other day. Referrals: ROSARIO ALTAMIRANO MD [Primary Care Provider] - Follow up as needed DEMETRA JACOBS MD [NO LOCAL MD] - Follow up in 3-5 days
[2018-07-03 19:46] LABS: APPEARANCE,URINE CLEAR; BILIRUBIN,URINE NEGATIVE (NEGATIVE); COLOR,URINE YELLOW; GLUCOSE, URINE NEGATIVE (NEGATIVE); KETONES,URINE NEGATIVE (NEGATIVE); LEUKOCYTE ESTERASE,URINE NEGATIVE (NEGATIVE); NITRITE,URINE NEGATIVE (NEGATIVE); PROTEIN,URINE NEGATIVE (NEGATIVE); URINE SPECIFIC GRAVITY 1.011; UROBILINOGEN,URINE NEGATIVE mg/dL (<2.0)
[2018-07-03 22:03] VITALS: BP 137/108
== END 2018-07-03 22:02 | disposition home or self-care (01) ==
LOC: ER 16:09
DX: R33.9 Retention of urine, unspecified (principal); R10.30 Lower abdominal pain, unspecified; Z88.6 Allergy status to analgesic agent
CPT/HCPCS: 99284; 36415; 83690; 85025; 80053; 81001; 74176; C1758

== ENCOUNTER 2018-07-06 12:04 | Emergency (ER) | payer OTHER ==
[2018-07-06] MEDS ORDERED: ONDANSETRON HCL INJ/PF 4 MG/2 ML SDV IV ONE (13:40)
[2018-07-06] MEDS ORDERED: NORMAL SALINE 1000 ML 1,000 ML IV ONE (13:40)
[2018-07-06] MEDS ORDERED: KETOROLAC TROMETHAMINE INJ/PF 30 MG/1 ML SDV IV ONE (13:40)
--- NOTE | 2018-07-06 13:41 | ER Document Report ---
ED Medical Screen (RME) - General Chief Complaint: Nausea/Vomiting Stated Complaint: BACK PAIN Time Seen by Provider: 07/06/18 13:36 Primary Care Provider: ROSARIO ALTAMIRANO MD [Primary Care Provider] - Follow up as needed TRAVEL OUTSIDE OF THE [place] IN LAST 30 DAYS: No - HPI Notes: 07/06/18 13:40 Patient is a 38-year-old male who presents to the emergency department complai lianet of nausea, vomiting, generalized abdominal pain/cramping, constipation for evaluation. Patient states that his symptoms generally started yesterday, but has had constipation over the past couple weeks with no good bowel movement in over a week. Patient states that he had a couple pieces, yesterday, but it was painful primarily because of the Sims catheter that was placed. Patient had a Sims placed at his visit 3 days ago for urinary retention. He does have an appointment with urology in 4 days. Denies RESENDEZ, fever, neck pain, URI, CP, SOB, or rash. I have treated and performed a rapid initial assessment of this patient. A comprehensive ED assessment and evaluation of the patient, analysis of test results and completion of medical decision making process will be conducted by additional ED providers. PHYSICAL EXAMINATION: GENERAL: Well-appearing, well-nourished and in no acute distress. A&Ox4. Answers questions appropriately. LUNGS: Breath sounds clear to auscultation bilaterally and equal. No wheezes rales or rhonchi. HEART: Regular rate and rhythm without murmurs, rubs, gallops. ABDOMEN: Soft, nondistended abdomen. No guarding, no rebound. Normal bowel sounds present. No CVA tenderness bilaterally. + mild generalized tenderness (cannot elicit thorough abd exam w/o table, however). - Related Data Allergies/Adverse Reactions: acetaminophen [From Percocet] Allergy (Verified 07/03/18 16:09) oxycodone [From Percocet] Allergy (Verified 07/03/18 16:09) Past Medical History - Past Medical History Cardiac Medical History: Reports: Hx DVT, Hx Hypertension - taken off bp meds this week Renal/ Medical History: Denies: Hx Peritoneal Dialysis GI Medical History: Reports: Hx Gastroesophageal Reflux Disease, Hx Irritable Bowel - Has been told he has some degree of IBS. Musculoskeltal Medical History: Reports Hx Musculoskeletal Deformity, Reports Hx Musculoskeletal Trauma Traumatic Medical History: Reports: Hx Fractures - Bilateral legs times multiple left arm multiple fingers multiple toes ankle Past Surgical History: Reports: Hx Orthopedic Surgery - R foot, right rotator cuff repair - Immunizations Immunizations up to date: Yes Hx Diphtheria, Pertussis, Tetanus Vaccination: Yes Physical Exam - Vital signs Vitals: Temp Pulse Resp BP Pulse Ox 97.8 F 112 H 16 126/81 H 98 07/06/18 12:24 07/06/18 12:24 07/06/18 12:24 07/06/18 12:24 07/06/18 12:24 Course - Vital Signs Vital signs: Temp Pulse Resp BP Pulse Ox 97.8 F 112 H 16 126/81 H 98 07/06/18 12:24 07/06/18 12:24 07/06/18 12:24 07/06/18 12:24 07/06/18 12:24 Doctor's Discharge - Discharge Referrals: ROSARIO ALTAMIRANO MD [Primary Care Provider] - Follow up as needed
[2018-07-06 14:10] LABS: ABSOLUTE LYMPHOCYTES (AUTO) 2.2 10^3/uL (0.5-4.7); ABSOLUTE MONOCYTES (AUTO) 0.6 10^3/uL (0.1-1.4); ABSOLUTE NEUT (AUTO) 8.7 10^3/uL (1.7-8.2); BASOPHILS % (AUTO) 0.3 % (0-2); EOSINOPHILS % (AUTO) 0.4 % (0-6); HEMATOCRIT 49.6 % (37.9-51.0); LYMPHOCYTES % (AUTO) 19.4 % (13-45); MEAN CORPUSCULAR HEMOGLOBIN 30.1 pg (27.0-33.4); MEAN CORPUSCULAR HGB CONC 34.2 g/dL (32.0-36.0); MEAN CORPUSCULAR VOLUME 88 fl (80-97); MONOCYTES % (AUTO) 5.1 % (3-13); PLATELET COUNT 268 10^3/uL (150-450); RED BLOOD COUNT 5.65 10^6/uL (4.35-5.55); RED CELL DISTRIBUTION WIDTH 13.4 % (11.5-14.0); SEGMENTED NEUTROPHILS % (AUTO) 74.8 % (42-78); TOTAL CELLS COUNTED % (AUTO) 100 %; WHITE BLOOD COUNT 11.6 10^3/uL (4.0-10.5)
[2018-07-06 14:28] LABS: ALANINE AMINOTRANSFERASE 25 U/L (21-72); ALBUMIN 4.6 g/dL (3.5-5.0); ALKALINE PHOSPHATASE 77 U/L (38-126); ANION GAP 15 (5-19); ASPARTATE AMINO TRANSFERASE 15 U/L (17-59); BILIRUBIN,DIRECT 0.4 mg/dL (0.0-0.4); BILIRUBIN,TOTAL 1.3 mg/dL (0.2-1.3); BLOOD UREA NITROGEN 14 mg/dL (7-20); CALCIUM 9.6 mg/dL (8.4-10.2); CARBON DIOXIDE 25 mmol/L (22-30); CHLORIDE 101 mmol/L (98-107); GLUCOSE 106 mg/dL (75-110); LIPASE 53.7 U/L (23-300); POTASSIUM 4.5 mmol/L (3.6-5.0); TOTAL PROTEIN 7.6 g/dL (6.3-8.2)
--- NOTE | 2018-07-06 14:39 | RADIOLOGY REPORT (SQ) ---
EXAM DESCRIPTION: KUB/ABDOMEN (SINGLE VIEW) COMPLETED DATE/TIME: 07/06/2018 2:26 pm REASON FOR STUDY: constipation, generalized pain COMPARISON: None. NUMBER OF VIEWS: One view. TECHNIQUE: Supine radiographic image of the abdomen acquired. LIMITATIONS: None. FINDINGS: BOWEL GAS PATTERN: Normal bowel gas pattern. No dilated loops. Moderate burden of stool i n the left and right colon. CALCIFICATIONS: No suspicious calcifications. SOFT TISSUES: No gross mass or suggestion of organomegaly. HARDWARE: None in the abdomen. BONES: No acute fracture. No worrisome bone lesions. OTHER: No other significant finding. IMPRESSION: Nonobstructive pattern of bowel gas with gas present to the rectum. There is a moderate burden of stool in the left and right colon. TECHNICAL DOCUMENTATION: JOB ID: [id number] [employer]- All Rights Reserved Reading location - IP/workstation name: [email or web address]
[2018-07-06] MEDS ORDERED: DIAZEPAM INJ 10 MG/2 ML DISP.SYRIN IV ONE (14:45)
[2018-07-06 16:32] LABS: APPEARANCE,URINE CLEAR; BILIRUBIN,URINE NEGATIVE (NEGATIVE); COLOR,URINE YELLOW; GLUCOSE, URINE NEGATIVE (NEGATIVE); KETONES,URINE 80 mg/dL (NEGATIVE); LEUKOCYTE ESTERASE,URINE TRACE (NEGATIVE); NITRITE,URINE NEGATIVE (NEGATIVE); PROTEIN,URINE NEGATIVE (NEGATIVE); URINE SPECIFIC GRAVITY 1.023
--- NOTE | 2018-07-06 17:23 | ER Document Report ---
ED GI/ - General Chief Complaint: Nausea/Vomiting Stated Complaint: BACK PAIN Time Seen by Provider: 07/06/18 13:36 Primary Care Provider: ROSARIO ALTAMIRANO MD [Primary Care Provider] - Follow up as needed Information source: Patient, Relative Notes: Patient is a 36-year-old male comes to emergency room coming by his with a complaint of bilateral back pain increasing over. Week. And Sims catheter pain. And is also complaining of chronic constipation. Patient was seen here o n 03 Jul 2018 where he was diagnosed with an obstructive uropathy and had a Sims catheter placement done. He he has scheduled an appointment to see urology but cannot get in until the of this month. states that they contacted urology today because of the discomfort he is having with the Sims and was told that they cannot see him until he is off his antibiotics for more than 24 hours and he had his last dose yesterday. Patient was on antibiotics for a foot wound that he had surgery on as prophylaxis a few months ago. He is currently off the antibiotic less than 24 hours. Patient complains of the pain in his bilateral back area as well without any radiation. He states his last bowel movement was yesterday and was only a little small amount. He has attempted to take MiraLAX without any success. and patient are stating that happened 2 months ago patient was actually very healthy had never saw a doctor. For the last 2 months he has been hospitalized a couple of times primary [facility] for his foot. states she is been just laying around because of the Sims catheter so uncomfortable that he cannot find a position of comfort he has tried to sleep on his back and he is always been a side sleeper so he is not sleeping at night at all. TRAVEL OUTSIDE OF THE [place] IN LAST 30 DAYS: No - HPI Patient complains to provider of: Abdominal pain, Flank pain. No: Dysuria Onset: Last week Timing/Duration: Sudden, Persistent Severity at maximum: Moderate Severity in ED: Severe Pain Level: 4 Context: denies: Bad food Location: Left flank, Right flank Sexual history: Inactive Associated symptoms: denies: Dysuria Exacerbated by: Denies Relieved by: Denies Similar symptoms previously: Yes Recently seen / treated by doctor: Yes - Related Data Allergies/Adverse Reactions: acetaminophen [From Percocet] Allergy (Verified 07/06/18 13:43) oxycodone [From Percocet] Allergy (Verified 07/06/18 13:43) Past Medical History - General Information source: Patient, Relative - Social History Smoking Status: Never Smoker Cigarette use (# per day): No Chew tobacco use (# tins/day): No Smoking Education Provided: No Frequency of alcohol use: None Lives with: Spouse/Significant other Family History: Reviewed & Not Pertinent Patient has suicidal ideation: No Patient has homicidal ideation: No - Past Medical History Cardiac Medical History: Reports: Hx DVT, Hx Hypertension - taken off bp meds this week Renal/ Medical History: Denies: Hx Peritoneal Dialysis GI Medical History: Reports: Hx Gastroesophageal Reflux Disease, Hx Irritable Bowel - Has been told he has some degree of IBS. Musculoskeletal Medical History: Reports Hx Musculoskeletal Deformity, Reports Hx Musculoskeletal Trauma Traumatic Medical History: Reports: Hx Fractures - Bilateral legs times multiple left arm multiple fingers multiple toes ankle Past Surgical History: Reports: Hx Orthopedic Surgery - R foot, right rotator cuff repair - Immunizations Immunizations up to date: Yes Hx Diphtheria, Pertussis, Tetanus Vaccination: Yes Review of Systems - Review of Systems Constitutional: No symptoms reported EENT: No symptoms reported Cardiovascular: No symptoms reported Respiratory: No symptoms reported Gastrointestinal: See HPI, Abdominal pain, Constipation Genitourinary: See HPI, Retention Male Genitourinary: No symptoms reported Musculoskeletal: No symptoms reported Skin: No symptoms reported Hematologic/Lymphatic: No symptoms reported Neurological/Psychological: No symptoms reported -: Yes All other systems reviewed and negative Physical Exam - Vital signs Vitals: Temp Pulse Resp BP Pulse Ox 97.8 F 112 H 16 126/81 H 98 07/06/18 12:24 07/06/18 12:24 07/06/18 12:24 07/06/18 12:24 07/06/18 12:24 Interpretation: Hypertensive, Tachycardic - Notes Notes: PHYSICAL EXAMINATION: GENERAL: Patient is a well-nourished well-developed 38-year-old male who though no apparent distress is in obvious pain or discomfort. Patient cannot find a position of comfort. HEAD: Atraumatic, normocephalic. NECK: Normal range of motion, supple without lymphadenopathy LUNGS: Breath sounds clear to auscultation bilaterally and equal. No wheezes rales or rhonchi. HEART: Tachycardic rate and rhythm without murmurs ABDOMEN: Examination patient's abdomen does show that he has some mild distention by lateral lower quads and upper quads. He has bowel sounds are present all 4 quads. He does display some mild tenderness to percussion in the lower back area not necessarily the CVA tenderness or flank pain. Further evaluation down to the Sims catheter that was placed approximately 8 days ago shows it to be in good position with good drainage. There is seems to be no obstruction through the Sims catheter at this time. The primary complaint is due to comfort. Musculoskeletal: NEUROLOGICAL: Normal speech, normal gait. Normal sensory, motor exams PSYCH: Anxious SKIN: Warm, Dry, normal turgor, no rashes or lesions noted. Insulin gym protein Course - Re-evaluation Re-evalutation: 07/06/18 17:25 Patient stay in ER is been relatively benign. Physical examination showed probable spasms in his lower back his x-ray of his abdomen showed that he has a nonobstructive pattern of bowel gas with gas present in the rectum there is a moderate burden of stool in the left and right colon. This goes along with his history of constipation which have not been able to solve since leaving here for a week or so ago. With the present she is his primary guest services assistant at this point not very enthusiastic about trying to get him well states that he is just not be able to sleep at night because of the discomfort with the Sims catheter. They do have an appointment to see urology on Monday this coming week and he has been off his antibiotics. His urine is clean with the Sims catheter being in they are taking exquisite care of keeping the area around the Sims very clean. I like to give patient Valium for the spasms in his back and it had a tube pulled purpose to allow him to get some sleep. states that he has not slept as well since she has been in the hospital the last time. At this point I am going to go ahead and write patient a few Valium that he is going to hold his Xanax for now for the muscle spasms in his back and they will take it only as needed up to 3 times a day. I have instructed the that with the 10 mg that even break the pill in half and maybe only take a full pill at night for sleep. Patient and are in agreement with this plan. This will least take the anxiety of the weekend from him having the Sims catheter in and may be sleep at night get rid of the spasms. Here in the emergency room his discomfort went down to almost 0. He has been resting comfortably. 07/06/18 17:28 - Vital Signs Vital signs: Temp Pulse Resp BP Pulse Ox 97.8 F 112 H 16 126/81 H 98 07/06/18 12:24 07/06/18 12:24 07/06/18 12:24 07/06/18 12:24 07/06/18 12:24 - Laboratory Result Diagrams: 07/06/18 14:01 07/06/18 14:01 Laboratory results interpreted by me: 07/06/18 07/06/18 07/06/18 14:01 14:01 16:10 WBC 11.6 H RBC 5.65 H Absolute Neutrophils 8.7 H AST 15 L Urine Ketones 80 H Urine Urobilinogen 2.0 H Ur Leukocyte Esterase TRACE H Discharge - Discharge Clinical Impression: Obstructive uropathy, Spasm of muscle of lower back Constipation Qualifiers: Constipation type: unspecified constipation type Qualified Code(s): K59.00 - Constipation, unspecified Disposition: HOME, SELF-CARE Instructions: Constipation ([facility]), Urinary Retention ([facility]), Sims Catheter Care ([facility]) Additional Instructions: As we discussed 1 of the ways you can aid the constipation problem is to get milk of magnesia. It comes into flavors mccann and meant. Generic version is just as good as the name brand. The richardson to this is you up to drink a larger amount of the milk of magnesia. For his size the measuring cup the comes on top of the bottle either generic or namebrand looks like a shot glass. For his size he should drink 2-1/2 of those before bed. Follow that with 12 ounces of warm tap water. Go to bed. In the morning when you wake up having hot coffee or hot tea you will stimulate you to have a nice fluid bowel movement. The richardson I believe is been taking it at night before bed this allows you to rest and let the intestines do the job of pulling water into the area emulsify in the stool therefore given you a nice bowel movement. You may wait 1 day and then repeat the process and that should clean you out fairly well. Keep your appointment with the urologist and is scheduled. If you should spike a fever or have any other concerns over the weekend please return for recheck. As far as the Valium goes I have written you for a few of the 10 mg taken only as needed. But avoid taking it at any time with your Xanax. You must take 1 or the other but do not take both during the same day. The pills can be broken in half so if you only need a small amount of relief during the day highly suggest that you break it in half but take no more than 3 times a day every 6 hours. Prescriptions: Diazepam 10 mg PO TID PRN #12 tablet PRN Reason: Referrals: ROSARIO ALTAMIRANO MD [Primary Care Provider] - Follow up as needed
[2018-07-06 17:45] VITALS: BP 126/76
== END 2018-07-06 17:48 | disposition home or self-care (01) ==
LOC: ER 12:04
DX: N13.9 Obstructive and reflux uropathy, unspecified (principal); M62.830 Muscle spasm of back; K59.00 Constipation, unspecified; R11.2 Nausea with vomiting, unspecified; M54.9 Dorsalgia, unspecified; I10 Essential (primary) hypertension; Z88.6 Allergy status to analgesic agent; Z86.718 Personal history of other venous thrombosis and embolism
CPT/HCPCS: 99284; 96361; 96374; 96375; 36415; 87086; 83690; 85025; 87088; 80053; 81001; 87186; 74018; J3360; J1885; J2405; J7030

== ENCOUNTER 2019-01-31 17:20 | Emergency (ER) | payer OTHER ==
[2019-01-31 17:33] VITALS: BP 130/89
[2019-01-31] MEDS ORDERED: NORMAL SALINE 1000 ML 1,000 ML IV ONE (18:31)
--- NOTE | 2019-01-31 18:40 | ER Document Report ---
ED Medical Screen (RME) - General Chief Complaint: Shortness Of Breath Stated Complaint: SHORT OF BREATH,SLEEPY Time Seen by Provider: 01/31/19 18:20 Primary Care Provider: ROSARIO ALTAMIRANO MD [Primary Care Provider] - Follow up as needed Mode of Arrival: Wheelchair Information source: Patient Notes: 38-year-old male patient presenting to the emergency department with lethargy and reported mental confusion. Patient recently discharged from observation for similar symptoms. states that he continues to "not acting right". Patient reports that he does not feel well. He appears very drowsy in triage. Exam: Lung sounds clear and equal bilaterally. Heart sounds S1-S2 present. I have greeted and performed a rapid initial assessment of this patient. A comprehensive ED assessment and evaluation of the patient, analysis of test results and completion of the medical decision making process will be conducted by additional ED providers. I have specifically instructed the patient or family members with the patient to immediately return to any nursing staff should anything change in the patient's condition or with their chief complaint. This medical record was dictated with voice recognizing software. There may be grammatical, syntax errors that are unintended. TRAVEL OUTSIDE OF THE [place] IN LAST 30 DAYS: No - Related Data Allergies/Adverse Reactions: acetaminophen [From Percocet] Allergy (Verified 01/31/19 18:10) oxycodone [From Percocet] Allergy (Verified 01/31/19 18:10) Past Medical History - Social History Chew tobacco use (# tins/day): No Frequency of alcohol use: Occasional Drug Abuse: None - Past Medical History Cardiac Medical History: Reports: Hx DVT, Hx Hypertension - taken off bp meds this week Denies: Hx Coronary Artery Disease, Hx Heart Attack, Hx Hypercholesterolemia Pulmonary Medical History: Denies: Hx Asthma, Hx COPD Neurological Medical History: Denies: Hx Seizures Endocrine Medical History: Denies: Hx Diabetes Mellitus Type 1, Hx Diabetes Mellitus Type 2, Hx Hyperthyroidism, Hx Hypothyroidism Renal/ Medical History: Denies: Hx Peritoneal Dialysis GI Medical History: Reports: Hx Gastroesophageal Reflux Disease, Hx Irritable Bowel - Has been told he has some degree of IBS.. Denies: Hx Cirrhosis, Hx Crohn's Disease, Hx Hepatitis, Hx Ulcerative Colitis Musculoskeltal Medical History: Denies Hx Arthritis, Denies Hx Gout, Reports Hx Musculoskeletal Deformity, Reports Hx Musculoskeletal Trauma Skin Medical History: Denies Hx Eczema Traumatic Medical History: Reports: Hx Fractures - Bilateral legs times multiple left arm multiple fingers multiple toes ankle Infectious Medical History: Denies: Hx Hepatitis Past Surgical History: Reports: Hx Orthopedic Surgery - R foot, right rotator cuff repair - Immunizations Immunizations up to date: Yes Hx Diphtheria, Pertussis, Tetanus Vaccination: Yes Physical Exam - Vital signs Vitals: Temp Pulse Resp BP Pulse Ox 98.7 F 105 H 16 130/89 H 94 01/31/19 17:30 01/31/19 17:30 01/31/19 17:30 01/31/19 17:30 01/31/19 17:30 Course - Vital Signs Vital signs: Temp Pulse Resp BP Pulse Ox 98.7 F 105 H 16 130/89 H 94 01/31/19 18:10 01/31/19 17:30 01/31/19 18:10 01/31/19 17:30 01/31/19 18:10 Doctor's Discharge - Discharge Referrals: ROSARIO ALTAMIRANO MD [Primary Care Provider] - Follow up as needed
[2019-01-31 19:00] LABS: APPEARANCE,URINE CLEAR; BILIRUBIN,URINE NEGATIVE (NEGATIVE); COLOR,URINE YELLOW; GLUCOSE, URINE NEGATIVE (NEGATIVE); KETONES,URINE 20 mg/dL (NEGATIVE); LEUKOCYTE ESTERASE,URINE NEGATIVE (NEGATIVE); NITRITE,URINE NEGATIVE (NEGATIVE); PROTEIN,URINE NEGATIVE (NEGATIVE); URINE SPECIFIC GRAVITY 1.021; UROBILINOGEN,URINE NEGATIVE mg/dL (<2.0)
[2019-01-31 19:25] LABS: ABSOLUTE EOSINOPHILS # (AUTO) 0.1 10^3/uL (0.0-0.6); ABSOLUTE LYMPHOCYTES (AUTO) 2.1 10^3/uL (0.5-4.7); ABSOLUTE MONOCYTES (AUTO) 0.5 10^3/uL (0.1-1.4); ABSOLUTE NEUT (AUTO) 5.2 10^3/uL (1.7-8.2); BASOPHILS % (AUTO) 0.4 % (0-2); EOSINOPHILS % (AUTO) 0.7 % (0-6); HEMATOCRIT 46.4 % (37.9-51.0); HEMOGLOBIN 15.8 g/dL (13.5-17.0); LYMPHOCYTES % (AUTO) 26.8 % (13-45); MEAN CORPUSCULAR HEMOGLOBIN 29.8 pg (27.0-33.4); MEAN CORPUSCULAR HGB CONC 34.1 g/dL (32.0-36.0); MEAN CORPUSCULAR VOLUME 88 fl (80-97); MONOCYTES % (AUTO) 6.7 % (3-13); PLATELET COUNT 200 10^3/uL (150-450); RED CELL DISTRIBUTION WIDTH 13.6 % (11.5-14.0); SEGMENTED NEUTROPHILS % (AUTO) 65.4 % (42-78); TOTAL CELLS COUNTED % (AUTO) 100 %; WHITE BLOOD COUNT 7.9 10^3/uL (4.0-10.5)
[2019-01-31 19:26] LABS: VENOUS BLOOD BASE EXCESS 0.4 mmol/L; VENOUS BLOOD HCO3 25.4 mmol/L (20-32); VENOUS BLOOD PCO2 42.1 mmHg (35-63); VENOUS BLOOD PH 7.4 (7.30-7.42)
--- NOTE | 2019-01-31 19:26 | RADIOLOGY REPORT (SQ) ---
EXAM DESCRIPTION: CHEST 2 VIEWS COMPLETED DATE/TIME: 01/31/2019 7:05 pm REASON FOR STUDY: dyspnea COMPARISON: None. EXAM PARAMETERS: NUMBER OF VIEWS: two views TECHNIQUE: Digital Frontal and Lateral radiographic views of the chest acquired. RADIATION DOSE: NA LIMITATIONS: none FINDINGS: LUNGS AND PLEURA: No opacities, masses or pneumothorax. No pleural effusion. MEDIASTINUM AND HILAR STRUCTURES: No masses or contour abnormalities. HEART AND VASCULAR STRUCTURES: Heart normal size. No evidence for failure. BONES: No acute findings. HARDWARE: None in the chest. OTHER: No other significant finding. IMPRESSION: NO ACUTE RADIOGRAPHIC FINDING IN THE CHEST. TECHNICAL DOCUMENTATION: JOB ID: [id number] [employer]- All Rights Reserved Reading location - IP/workstation name: [email or web address]
[2019-01-31 19:49] LABS: ALBUMIN 4.6 g/dL (3.5-5.0); ALKALINE PHOSPHATASE 59 U/L (38-126); ANION GAP 14 (5-19); ASPARTATE AMINO TRANSFERASE 19 U/L (17-59); BILIRUBIN,DIRECT 0.1 mg/dL (0.0-0.4); BILIRUBIN,TOTAL 0.9 mg/dL (0.2-1.3); BLOOD UREA NITROGEN 15 mg/dL (7-20); CALCIUM 10.1 mg/dL (8.4-10.2); CARBON DIOXIDE 28 mmol/L (22-30); CHLORIDE 99 mmol/L (98-107); GLUCOSE 134 mg/dL (75-110); TOTAL PROTEIN 7.6 g/dL (6.3-8.2)
[2019-01-31 19:58] LABS: POTASSIUM 3.9 mmol/L (3.6-5.0)
== END 2019-01-31 21:57 | disposition left against medical advice (07) ==
LOC: ER 17:20
DX: R06.02 Shortness of breath (principal); R41.0 Disorientation, unspecified; I10 Essential (primary) hypertension; Z86.718 Personal history of other venous thrombosis and embolism
CPT/HCPCS: 36415; 83605; 85025; 80053; 81001; 82803; 71046; J7030; 99285

== ENCOUNTER 2019-02-04 07:17 | Emergency (ER) | payer OTHER ==
[2019-02-04] MEDS ORDERED: RINGERS SOLUTION,LACTATED 1,000 ML IV ONE ×2 (07:43→09:00)
--- NOTE | 2019-02-04 08:01 | ER Document Report ---
Entered by SHANON SCHAFER SCRIBE 02/04/19 0737 Acting as scribe for:TOBIAS MORALES MD ED Syncope and Near Syncope - General Chief Complaint: Syncope Stated Complaint: POSSIBLE SYNCOPE Time Seen by Provider: 02/04/19 07:30 Primary Care Provider: BERE HERNDON MD [Primary Care Provider] - Follow up as needed Mode of Arrival: Medic Information source: Patient Notes: This 38 year old male patient brought in by EMS presents to the ED today with complaints of a syncopal episode. Patient reports that he was straining to urinate this morning when he "blacked out and fell forward." Patient denies any dizziness or lightheadedness. EMS reported a one-point the patient had a heart rate 140 with a blood pressure of 90/60. I gave him 400mls of Ringer's lactate. Patient was admitted on 01/29/2019 with altered mental status, it was felt to be due to the Lyrica and amitriptyline he was given for a right foot Burks's neuroma. Amitriptyline was stopped and the Lyrica dose was reduced. He returned on 01/31/2019 complaining of being sleepy. At that time his creatinine had risen to 1.41, it had been about 1.23 two days earlier. Patient's arrived later. She states that his blood pressure has been quite labile. He takes lisinopril 10 mg daily. She is inquiring about cutting in half and dosing it based on his blood pressures. She also reports that he had been throwing up some the last 2 nights. He has a history of EGD showing esophageal scarring and inflammation and healed gastric ulcers. Further history is that the patient has BPH, he had a laser TURP on 11/23/2018, and he is already having problems urinating again. He reports for the last 2 to 3 days he has been having to strain a lot more. He does have Flomax at home and has not tried taking that. TRAVEL OUTSIDE OF THE [place] IN LAST 30 DAYS: No - Related Data Allergies/Adverse Reactions: acetaminophen [From Percocet] Allergy (Verified 02/04/19 08:55) oxycodone [From Percocet] Allergy (Verified 02/04/19 08:55) Past Medical History - General Information source: Patient, [facility] Records - Social History Smoking Status: Former Smoker Cigarette use (# per day): No Chew tobacco use (# tins/day): No Smoking Education Provided: No Frequency of alcohol use: Occasional Drug Abuse: None Occupation: Currently out on disability, on Worker's Compensation Lives with: Family, Spouse/Significant other Family History: CAD, CVA, DM, Hypertension, Malignancy - Past Medical History Cardiac Medical History: Reports: Hx DVT, Hx Hypertension - taken off bp meds this week GI Medical History: Reports: Hx Gastritis, Hx Gastroesophageal Reflux Disease, Hx Irritable Bowel - Has been told he has some degree of IBS., Hx Colonoscopy, Hx Endoscopy Musculoskeletal Medical History: Reports Hx Musculoskeletal Deformity, Reports Hx Musculoskeletal Trauma Traumatic Medical History: Reports: Hx Fractures - Bilateral legs, left arm, fingers, toes and ankle Past Surgical History: Reports: Hx Orthopedic Surgery - R foot, right rotator cuff repair - Immunizations Immunizations up to date: Yes Hx Diphtheria, Pertussis, Tetanus Vaccination: Yes Review of Systems - Review of Systems Constitutional: No symptoms reported EENT: No symptoms reported Cardiovascular: See HPI, Syncope. denies: Dizziness, Lightheaded Respiratory: No symptoms reported Gastrointestinal: No symptoms reported Genitourinary: See HPI, Retention Male Genitourinary: No symptoms reported Musculoskeletal: No symptoms reported Skin: No symptoms reported Hematologic/Lymphatic: No symptoms reported Neurological/Psychological: No symptoms reported -: Yes All other systems reviewed and negative Physical Exam - Vital signs Vitals: Resp BP Pulse Ox 8 L 124/108 H 92 02/04/19 07:23 02/04/19 07:23 02/04/19 07:23 - General General appearance: Alert - HEENT Head: Normocephalic, Atraumatic Eyes: Normal Pupils: PERRL Mucous membranes: Dry - Respiratory Respiratory status: No respiratory distress Chest status: Nontender Breath sounds: Normal Chest palpation: Normal - Cardiovascular Rhythm: Regular, Other - weak and thready pulse Heart sounds: Normal auscultation Murmur: No - Abdominal Inspection: Normal Distension: No distension Bowel sounds: Normal Tenderness: Nontender Organomegaly: No organomegaly - Back Back: Normal, Nontender - Extremities General upper extremity: Normal inspection General lower extremity: Normal inspection Foot: Other - burks's neuroma on right foot - Neurological Neuro grossly intact: Yes - Psychological Associated symptoms: Depressed - Skin Skin Temperature: Warm Skin Moisture: Dry Skin Color: Normal Course - Re-evaluation Re-evalutation: 02/04/19 12:04 The patient does have BPH, and his symptoms have been worsening for the last few days. He has not tried taking his Flomax. He notes he has been having to strain much harder to urinate. When EMS first saw the patient, they did orthostatics, and on standing he became quite tachycardic and hypotensive. He was given 400 mL's of IV fluids. In the emergency room he received another 2 L before he was able to urinate. That urine specimen had a specific gravity 1.030, and 27 WBCs. He is receiving another liter of fluid at this time, we will try to get another urine specimen as it becomes more dilute and see if he really does have evidence of urinary tract infection. 02/04/19 13:28 Patient began itching all over little earlier. He states that is been happening now for off and on since he has been given Lyrica. I did give him Pepcid for t his. I was discussing this with the patient and spouse telling him that he should not take Benadryl due to his BPH and urine problems. At that point he reports that he did take Benadryl 2 days ago and that is when his urination problem started getting worse. 02/04/19 13:30 A repeat urine after approximately 3 and half liters of IV fluids, is still quite concentrated, however the total WBCs dropped from 27 to 5, so I do not think this is a urinary tract infection. - Vital Signs Vital signs: Temp Pulse Resp BP Pulse Ox 98.0 F 89 17 138/99 H 97 02/04/19 07:39 02/04/19 13:09 02/04/19 11:01 02/04/19 13:09 02/04/19 11:01 - Laboratory Result Diagrams: 02/04/19 07:34 02/04/19 07:34 Laboratory results interpreted by me: 02/04/19 02/04/19 02/04/19 07:34 10:26 12:38 RBC 5.57 H Urine Protein 30 H Urine Glucose (UA) 150 H Urine Ketones TRACE H Ur Leukocyte Esterase SMALL H - EKG Interpretation by Me EKG shows normal: Sinus rhythm, [place], Intervals, QRS Complexes, ST-T Waves Rate: Normal - 83 Rhythm: NSR Voltage: Consistant with LVH When compared to previous EKG there are: No significant change Discharge - Discharge Clinical Impression: Dehydration, Syncope and collapse, Orthostatic hypotension, BPH with obstructi on/lower urinary tract symptoms Condition: Stable Disposition: HOME, SELF-CARE Additional Instructions: Vasovagal Symptoms Your symptoms seem to be due to a fall in blood pressure, caused by the interaction of your nervous system with your circulatory system. This can result in abnormally slow pulse rate, faintness, abnormal sensations, low blood pressure, difficulty with vision, or fainting (syncope). Vasovagal symptoms may be brought on by emotional distress, pain, dehydration, bleeding, straining to urinate or defecate, or medication effects. Often, no cause can be identified. Your exam has revealed no signs of a serious problem. Usually, no further tests are required. However, if further workup has been recommended it's important that you follow up as instructed. Should you feel lightheaded or "about to faint," you should sit or lie down as quickly as possible. The episode will usually pass. Recurring symptoms will require further evaluation to determine the cause. Call the physician if you develop severe prolonged dizziness, headache, chest pain, shortness of breath, or other new symptoms. Your increased difficulty urinating the last few days is probably due to the Benadryl you took. Benadryl is an anti-cholinergic type medication and these medicines cause urination difficulty in patients with BPH. Your syncopal episode today was probably a combination of a vasovagal response due to strain to urinate, and being dehydrated. For today you should drink plenty of fluids throughout the day in the evening such that you are urinating at least every 2-3 hours, and your urine is very light in color. You may want to reduce your lisinopril dosing to 5 mg, or half a tablet, and then watch your blood pressure throughout the day to see if you need the other half of the tablet. Do not take Benadryl for itching. Take Pepcid 1 to 2 tablets every 4-6 hours as needed for itching. Follow-up with your primary care provider next Monday for recheck and to discuss all of your current issues including the increased urination trouble, the itching, and the fluctuating blood pressures. Try to see your provider sooner if your symptoms continue to be a problem. RETURN TO THE EMERGENCY ROOM IF ANY NEW OR WORSENING SYMPTOMS. Forms: Special Work Note Referrals: BERE HERNDON MD [Primary Care Provider] - 02/11/19 I personally performed the services described in the documentation, reviewed and edited the documentation which was dictated to the scribe in my presence, and it accurately records my words and actions.
[2019-02-04 08:10] LABS: ABSOLUTE EOSINOPHILS # (AUTO) 0.1 10^3/uL (0.0-0.6); ABSOLUTE LYMPHOCYTES (AUTO) 1.9 10^3/uL (0.5-4.7); ABSOLUTE MONOCYTES (AUTO) 0.6 10^3/uL (0.1-1.4); ABSOLUTE NEUT (AUTO) 4.8 10^3/uL (1.7-8.2); BASOPHILS % (AUTO) 0.2 % (0-2); EOSINOPHILS % (AUTO) 0.9 % (0-6); HEMATOCRIT 47.7 % (37.9-51.0); HEMOGLOBIN 16.6 g/dL (13.5-17.0); LYMPHOCYTES % (AUTO) 25.8 % (13-45); MEAN CORPUSCULAR HEMOGLOBIN 29.8 pg (27.0-33.4); MEAN CORPUSCULAR HGB CONC 34.9 g/dL (32.0-36.0); MEAN CORPUSCULAR VOLUME 86 fl (80-97); MONOCYTES % (AUTO) 8.4 % (3-13); PLATELET COUNT 217 10^3/uL (150-450); RED BLOOD COUNT 5.57 10^6/uL (4.35-5.55); RED CELL DISTRIBUTION WIDTH 13.1 % (11.5-14.0); SEGMENTED NEUTROPHILS % (AUTO) 64.7 % (42-78); TOTAL CELLS COUNTED % (AUTO) 100 %; WHITE BLOOD COUNT 7.3 10^3/uL (4.0-10.5)
[2019-02-04 08:29] LABS: ALBUMIN 4.5 g/dL (3.5-5.0); ALKALINE PHOSPHATASE 65 U/L (38-126); ANION GAP 12 (5-19); ASPARTATE AMINO TRANSFERASE 19 U/L (17-59); BILIRUBIN,DIRECT 0.2 mg/dL (0.0-0.4); BILIRUBIN,TOTAL 0.8 mg/dL (0.2-1.3); BLOOD UREA NITROGEN 15 mg/dL (7-20); CARBON DIOXIDE 25 mmol/L (22-30); CHLORIDE 103 mmol/L (98-107); CREATINE KINASE 55 U/L (55-170); GLUCOSE 104 mg/dL (75-110); POTASSIUM 3.9 mmol/L (3.6-5.0); TOTAL PROTEIN 7.5 g/dL (6.3-8.2)
[2019-02-04] MEDS ORDERED: ONDANSETRON HCL INJ/PF 4 MG/2 ML SDV IV ONE (08:36)
[2019-02-04 10:41] LABS: APPEARANCE,URINE SLIGHTLY-CLOUDY; BILIRUBIN,URINE NEGATIVE (NEGATIVE); COLOR,URINE YELLOW; GLUCOSE, URINE NEGATIVE (NEGATIVE); KETONES,URINE NEGATIVE (NEGATIVE); LEUKOCYTE ESTERASE,URINE SMALL (NEGATIVE); NITRITE,URINE NEGATIVE (NEGATIVE); PROTEIN,URINE 30 mg/dL (NEGATIVE); UROBILINOGEN,URINE NEGATIVE mg/dL (<2.0)
[2019-02-04] MEDS ORDERED: DEXTROSE 5%-LACTATED RINGERS 1,000 ML IV ONE (11:25)
[2019-02-04] MEDS ORDERED: FAMOTIDINE INJ/PF 20 MG/2 ML SDV IV ONE (12:32)
--- NOTE | 2019-02-04 12:44 | EKG REPORT ---
SEVERITY:- ABNORMAL ECG - SINUS RHYTHM LVH WITH SECONDARY REPOLARIZATION ABNORMALITY : Confirmed by: Vilma Hylton MD 04-Feb-2019 12:43:37
[2019-02-04 12:52] LABS: APPEARANCE,URINE CLEAR; BILIRUBIN,URINE NEGATIVE (NEGATIVE); COLOR,URINE YELLOW; GLUCOSE, URINE 150 mg/dL (NEGATIVE); KETONES,URINE TRACE mg/dL (NEGATIVE); LEUKOCYTE ESTERASE,URINE NEGATIVE (NEGATIVE); NITRITE,URINE NEGATIVE (NEGATIVE); PROTEIN,URINE NEGATIVE (NEGATIVE); URINE SPECIFIC GRAVITY 1.026; UROBILINOGEN,URINE NEGATIVE mg/dL (<2.0)
[2019-02-04 13:36] VITALS: BP 149/101
== END 2019-02-04 13:41 | disposition home or self-care (01) ==
LOC: ER 07:17
DX: E86.0 Dehydration (principal); I95.1 Orthostatic hypotension; N40.0 Benign prostatic hyperplasia without lower urinary tract symptoms; W19.XXXA Unspecified fall, initial encounter; Z79.899 Other long term (current) drug therapy; Z87.891 Personal history of nicotine dependence; I10 Essential (primary) hypertension
CPT/HCPCS: 93005; 99284; 96361; 96374; 96375; 36415; 87040; 82550; 83735; 85025; 80053; 81001; 84484; 82533; 93010; J2405; J7121; J7120; S0028